=== PATIENT | female | born 1990 ===

== ENCOUNTER 2017-03-09 14:59 | Emergency (ER) | payer BC ==
[2017-03-09 14:59] VITALS: BMI 23.8
[2017-03-09 15:10] VITALS: BP 140/73; PULSE 112; RESP 20; TEMP 97.8; O2SAT 100
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
== END 2017-03-09 18:09 | disposition home or self-care (01) ==
LOC: H.ER 14:59
DX: S09.90XA Unspecified injury of head, initial encounter (principal); H53.8 Other visual disturbances; Y04.0XXA Assault by unarmed brawl or fight, initial encounter; Y92.89 Other specified places as the place of occurrence of the external cause; F17.210 Nicotine dependence, cigarettes, uncomplicated

== ENCOUNTER 2017-03-14 10:09 | Emergency (ER) | payer BC ==
[2017-03-14 10:09] VITALS: BMI 23.8
[2017-03-14 10:18] VITALS: BP 106/57; PULSE 94; RESP 18; TEMP 97.7; O2SAT 99
--- NOTE | 2017-03-14 12:25 | ED PDOC ---
Lower Extremity Pain/Injury Time Seen by Provider: 03/14/17 12:23 Chief Complaint (Nursing): Lower Extremity Problem/Injury Chief Complaint (Provider): leg pain History Per: Patient History/Exam Limitations: no limitations Additional Complaint(s): 26yo F with no medical hx in ED c/o left lateral leg pain -doesn't remember strenuous activity, running or overstretching. states she works in [employer] does lifting. no groin pain no back pain no bruising no lesions. Past Medical History Reviewed: Historical Data, Nursing Documentation, Vital Signs Vital Signs: Last Vital Signs Temp 97.7 F 03/14/17 10:16 Pulse 94 H 03/14/17 10:16 Resp 18 03/14/17 10:16 BP 106/57 L 03/14/17 10:16 Pulse Ox 99 03/14/17 10:16 - Medical History PMH: Migraine - Surgical History Surgical History: (x2) - Family History Family History: States: Unknown Family Hx - Home Medications Home Medications: Ambulatory Orders Medication Instructions Recorded Ibuprofen [Motrin] 600 mg PO TID PRN #30 tab 07/08/16 Naproxen [Naprosyn] 1 tab PO BID PRN #60 tab 08/05/16 Albuterol HFA [Ventolin HFA 90 2 puff IH [id number] PRN #0 puff 09/04/16 mcg/actuation (8 g)] Promethazine DM [Phenergan DM 5 ml PO Q6 PRN #120 ml 09/04/16 Syrup] Naproxen [Naprosyn] 500 mg PO BID PRN #20 tablet 09/24/16 Albuterol HFA [Ventolin HFA 90 2 puff IH Q6 #200 puff 12/21/16 mcg/actuation (8 g)] Dextromethorphan Polistirex 30 mg PO BID #100 ml 12/21/16 [Delsym] Oseltamivir Phosphate [Tamiflu] 75 mg PO BID #10 capsule 12/21/16 Ondansetron ODT [Zofran ODT] 4 mg PO Q6 PRN #10 odt 03/09/17 Multivit/Folic Acid/I 1 tab PO DAILY #30 tab 03/09/17 [ Plus] - Allergies Allergies/Adverse Reactions: Allergies Allergy/AdvReac Type Severity Reaction Status Date / Time No Known Allergies Allergy Verified 12/21/16 15:11 Review of Systems ROS Statement: Except As Marked, All Systems Reviewed And Found Negative Musculoskeletal: Positive for: Leg Pain Physical Exam - Reviewed Nursing Documentation Reviewed: Yes Vital Signs Reviewed: Yes - Physical Exam Appears: Positive for: Well, Non-toxic, No Acute Distress Head Exam: Positive for: ATRAUMATIC, NORMAL INSPECTION, NORMOCEPHALIC Skin: Positive for: Normal Color, Warm, DRY Cardiovascular/Chest: Positive for: Regular Rate, Rhythm Respiratory: Positive for: CNT, Normal Breath Sounds Extremity: Positive for: Other (left leg: lateral side- IT band tender., FROM of hip no lesions visible ) Neurologic/Psych: Positive for: Alert, Oriented - ECG O2 Sat by Pulse Oximetry: 99 Medical Decision Making Medical Decision Making: dx: IT band syndrome tx in ED: torodol IM plan: rest and f.u with pmd/motrin for pain. Disposition - Clinical Impression Clinical Impression: IT band syndrome - Patient ED Disposition Is Patient to be Admitted: No Counseled Patient/Family Regarding: Diagnosis, Need For Followup - Disposition Referrals: [facility] [Outside] Disposition: Routine/Home Disposition Time: 12:26 Condition: STABLE Instructions: Iliotibial Band Syndrome (ED) Forms: [facility] ED School/Work Excuse
== END 2017-03-14 14:00 | disposition home or self-care (01) ==
LOC: H.ER 10:09
DX: M76.32 Iliotibial band syndrome, left leg (principal)
CPT/HCPCS: 81025; 96372; 99283; J1885

== ENCOUNTER 2017-03-24 13:56 | Emergency (ER) | payer BC ==
[2017-03-24 13:56] VITALS: BMI 23.8
[2017-03-24 14:06] VITALS: BP 110/66; PULSE 109; RESP 19; TEMP 98.4; O2SAT 99
[2017-03-24] MEDS ORDERED: Naproxen 500 MG TAB PO ONE ×2 (14:18→14:26)
--- NOTE | 2017-03-24 14:25 | ED PDOC ---
HPI: CCC, URI, Sore Throat Time Seen by Provider: 03/24/17 14:00 Chief Complaint (Provider): cold, congestion History Per: Patient History/Exam Limitations: no limitations Have you had recent travel within the past 21 days to any of the following countries: [place], [place], [place] or [place]?: No Onset/Duration Of Symptoms: Days Current Symptoms Are (Timing): Still Present Location Of Pain: Throat, Sinus/es Sick Contacts (Context): None Associated Symptoms: Fever (feels febrile), Sore Throat, Nasal Congestion. denies: Cough Additional History Per: Patient Additional Complaint(s): The pt is a 26yo female, presents to the ED for evaluation of sore throat for the past two days. Pt reports congestion, feeling febrile and states she has not taken medication to relieve her pain. Pt denies any recent travels, sick contacts and abdominal pain. At present, she offers no additional medical complaints. Past Medical History Reviewed: Historical Data, Nursing Documentation, Vital Signs Vital Signs: Last Vital Signs Temp 98.4 F 03/24/17 14:05 Pulse 109 H 03/24/17 14:05 Resp 19 03/24/17 14:05 BP 110/66 03/24/17 14:05 Pulse Ox 99 03/24/17 14:32 - Medical History PMH: Migraine - Surgical History Surgical History: (x2) - Family History Family History: States: Unknown Family Hx - Home Medications Home Medications: Ambulatory Orders Medication Instructions Recorded Ibuprofen [Motrin] 600 mg PO TID PRN #30 tab 07/08/16 Naproxen [Naprosyn] 1 tab PO BID PRN #60 tab 08/05/16 Albuterol HFA [Ventolin HFA 90 2 puff IH [id number] PRN #0 puff 09/04/16 mcg/actuation (8 g)] Promethazine DM [Phenergan DM 5 ml PO Q6 PRN #120 ml 09/04/16 Syrup] Naproxen [Naprosyn] 500 mg PO BID PRN #20 tablet 09/24/16 Albuterol HFA [Ventolin HFA 90 2 puff IH Q6 #200 puff 12/21/16 mcg/actuation (8 g)] Dextromethorphan Polistirex 30 mg PO BID #100 ml 12/21/16 [Delsym] Oseltamivir Phosphate [Tamiflu] 75 mg PO BID #10 capsule 12/21/16 Ondansetron ODT [Zofran ODT] 4 mg PO Q6 PRN #10 odt 03/09/17 Multivit/Folic Acid/I 1 tab PO DAILY #30 tab 03/09/17 [ Plus] Ibuprofen [Motrin Tab] 600 mg PO Q8 PRN #30 tab 03/24/17 Penicillin VK [Pen-Vee K] 500 mg PO Q6 #40 tab 03/24/17 - Allergies Allergies/Adverse Reactions: Allergies Allergy/AdvReac Type Severity Reaction Status Date / Time No Known Allergies Allergy Verified 12/21/16 15:11 Review of Systems ROS Statement: Except As Marked, All Systems Reviewed And Found Negative Constitutional: Positive for: Fever (feels febrile) ENT: Positive for: Nose Congestion, Throat Pain, Throat Swelling Gastrointestinal: Negative for: Abdominal Pain Physical Exam - Reviewed Nursing Documentation Reviewed: Yes Vital Signs Reviewed: Yes - Physical Exam Appears: Positive for: Well, Non-toxic, No Acute Distress Head Exam: Positive for: ATRAUMATIC, NORMAL INSPECTION, NORMOCEPHALIC Skin: Positive for: Normal Color, Warm, Dry. Negative for: Rash Eye Exam: Positive for: Normal appearance ENT: Positive for: TM Is/Are (normal), Pharyngeal Erythema, Tonsillar Exudate, Tonsillar Swelling, Other (no trismus) Respiratory: Negative for: Respiratory Distress Gastrointestinal/Abdominal: Positive for: Soft. Negative for: Tenderness Neurologic/Psych: Positive for: Alert, Oriented - ECG O2 Sat by Pulse Oximetry: 99 (RA) Pulse Ox Interpretation: Normal Medical Decision Making Medical Decision Making: Time: 1420 Impression: URI Plan: -- Naproxen 500 mg -- Throat culture --Reassess Scribe Attestation: All records were documented by Valerie Slater, acting as a Scribe for PARIS Honeycutt. Provider Scribe Attestation: All medical record entries made by the Scribe were at my direction and personally dictated by me. I have reviewed the chart and agree that the record accurately reflects my personal performance of the history, physical exam, medical decision making, and the department course for this patient. I have also personally directed, reviewed, and agree with the discharge instructions and disposition. Disposition - Clinical Impression Clinical Impression: Pharyngitis - Patient ED Disposition Is Patient to be Admitted: No - Disposition Disposition: Routine/Home Disposition Time: 14:53 Condition: STABLE Prescriptions: Ibuprofen [Motrin Tab] 600 mg PO Q8 PRN #30 tab PRN Reason: pain or fever Penicillin VK [Pen-Vee K] 500 mg PO Q6 #40 tab Instructions: Pharyngitis (ED) Print Language: SLOVAK
== END 2017-03-24 14:56 | disposition home or self-care (01) ==
LOC: H.ER 13:56
DX: J02.9 Acute pharyngitis, unspecified (principal); Z72.0 Tobacco use

== ENCOUNTER 2017-05-05 15:07 | Emergency (ER) | payer BC ==
[2017-05-05 15:15] VITALS: BP 106/83; PULSE 81; RESP 16; TEMP 98.3; O2SAT 97
[2017-05-05 15:16] VITALS: BMI 23.2
[2017-05-05] MEDS ORDERED: TDAP Vaccine 0.5 mL Syr IM ONE (15:19)
--- NOTE | 2017-05-05 15:43 | ED PDOC ---
Upper Extremity Pain/Injury Time Seen by Provider: 05/05/17 15:17 Chief Complaint (Nursing): Finger,Hand,&Wrist Chief Complaint (Provider): Left hand injur History Per: Patient History/Exam Limitations: no limitations Onset/Duration Of Symptoms: Days (3) Current Symptoms Are (Timing): Still Present Quality: "Pain" Additional Complaint(s): The pt is a 26yo female, presents to the ED for evaluation of left 5th digit injury 3 days ago. Pt reports she hit her hand against a door and the pain has not subsided. Pt denies any numbness or tingling and offers no additional medical complaints. Tetanus not up to date. Past Medical History Reviewed: Historical Data, Nursing Documentation, Vital Signs Vital Signs: Last Vital Signs Temp 98.3 F 05/05/17 15:14 Pulse 81 05/05/17 15:14 Resp 16 05/05/17 15:14 BP 106/83 05/05/17 15:14 Pulse Ox 97 05/05/17 15:14 - Medical History PMH: Migraine - Surgical History Surgical History: (x2) - Family History Family History: States: Unknown Family Hx - Home Medications Home Medications: Ambulatory Orders Medication Instructions Recorded Ibuprofen [Motrin] 600 mg PO TID PRN #30 tab 07/08/16 Naproxen [Naprosyn] 1 tab PO BID PRN #60 tab 08/05/16 Albuterol HFA [Ventolin HFA 90 2 puff IH [id number] PRN #0 puff 09/04/16 mcg/actuation (8 g)] Promethazine DM [Phenergan DM 5 ml PO Q6 PRN #120 ml 09/04/16 Syrup] Naproxen [Naprosyn] 500 mg PO BID PRN #20 tablet 09/24/16 Albuterol HFA [Ventolin HFA 90 2 puff IH Q6 #200 puff 12/21/16 mcg/actuation (8 g)] Dextromethorphan Polistirex 30 mg PO BID #100 ml 12/21/16 [Delsym] Oseltamivir Phosphate [Tamiflu] 75 mg PO BID #10 capsule 12/21/16 Ondansetron ODT [Zofran ODT] 4 mg PO Q6 PRN #10 odt 03/09/17 Multivit/Folic Acid/I 1 tab PO DAILY #30 tab 03/09/17 [ Plus] Ibuprofen [Motrin Tab] 600 mg PO Q8 PRN #30 tab 03/24/17 Penicillin VK [Pen-Vee K] 500 mg PO Q6 #40 tab 03/24/17 - Allergies Allergies/Adverse Reactions: Allergies Allergy/AdvReac Type Severity Reaction Status Date / Time No Known Allergies Allergy Verified 05/05/17 16:06 Review of Systems ROS Statement: Except As Marked, All Systems Reviewed And Found Negative Musculoskeletal: Positive for: Hand Pain (left) Physical Exam - Reviewed Nursing Documentation Reviewed: Yes Vital Signs Reviewed: Yes - Physical Exam Appears: Positive for: Well, Non-toxic, No Acute Distress Head Exam: Positive for: ATRAUMATIC, NORMAL INSPECTION, NORMOCEPHALIC Skin: Positive for: Normal Color, Warm. Negative for: Rash Extremity: Positive for: Normal ROM, Other (Superficial abrasion on lateral side of distal phalanx. nail still intact.). Negative for: Deformity, Swelling Neurologic/Psych: Positive for: Alert, Oriented. Negative for: Aphasia, Facial Droop - ECG O2 Sat by Pulse Oximetry: 97 (RA) Pulse Ox Interpretation: Normal Medical Decision Making Medical Decision Making: Time: 1522 Impression: Left hand injury Plan: -- TDAP Booster -- XR Left Hand -- Reassess Scribe Attestation: Documented by Valerie Slater acting as a scribe for PARIS Honeycutt Provider Attestation: All medical record entries made by the Scribe were at my direction and personally dictated by me. I have reviewed the chart and agree that the record accurately reflects my personal performance of the history, physical exam, medical decision making, and the department course for this patient. I have also personally directed, reviewed, and agree with the discharge instructions and disposition. Disposition - Clinical Impression Clinical Impression: Finger sprain - Patient ED Disposition Is Patient to be Admitted: No - Disposition Referrals: [facility] [Outside] Disposition: Routine/Home Disposition Time: 15:45 Condition: STABLE Additional Instructions: Take Tylenol or Motrin at home for pain. Instructions: Finger Sprain (ED) Print Language: SLOVAK
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
== END 2017-05-05 16:10 | disposition home or self-care (01) ==
LOC: H.ER 15:07
DX: S63.615A Unspecified sprain of left ring finger, initial encounter (principal); W22.8XXA Striking against or struck by other objects, initial encounter; Y92.89 Other specified places as the place of occurrence of the external cause

== ENCOUNTER 2017-05-24 13:06 | Emergency (ER) | payer BC ==
[2017-05-24 13:07] VITALS: BMI 23.2
[2017-05-24 13:16] VITALS: BP 107/60; PULSE 90; RESP 16; TEMP 98.6; O2SAT 100
--- NOTE | 2017-05-24 13:47 | ED PDOC ---
HPI: Female Pain Time Seen by Provider: 05/24/17 13:25 Chief Complaint (Nursing): Female Genitourinary Chief Complaint (Provider): Female Genitourinary History Per: Patient History/Exam Limitations: no limitations Onset/Duration Of Symptoms: Days (2x) Current Symptoms Are (Timing): Still Present Severity: Moderate Quality Of Discomfort: Burning (dysuria) Associated Symptoms: Urinary Symptoms (dysuria, hematuria). denies: Fever, Chills, Nausea, Vomiting, Back Pain Additional Complaint(s): 26 year old female with no pertinent medical history presents to the ED with complaints of a female genitourinary problem. She reports that for the past 2x days she has been experiencing dysuria and hematuria. She also reports having intermittent abdominal pain and abnormal vaginal bleeding. She took ibuprofen this morning which gave her mild relief from the pain. She denies having fevers , chills, nausea, and vomiting. PMD: Not provided Abnormal Vaginal Bleeding: Yes Past Medical History Reviewed: Historical Data, Nursing Documentation, Vital Signs Vital Signs: Last Vital Signs Temp 98.6 F 05/24/17 13:13 Pulse 90 05/24/17 13:13 Resp 16 05/24/17 13:13 BP 107/60 05/24/17 13:13 Pulse Ox 100 05/24/17 13:13 - Medical History PMH: Migraine - Surgical History Surgical History: (x2) - Family History Family History: States: Unknown Family Hx - Social History Current smoker - smoking cessation education provided: Yes Alcohol: None Drugs: Denies - Home Medications Home Medications: Ambulatory Orders Medication Instructions Recorded Ibuprofen [Motrin] 600 mg PO TID PRN #30 tab 07/08/16 Naproxen [Naprosyn] 1 tab PO BID PRN #60 tab 08/05/16 Albuterol HFA [Ventolin HFA 90 2 puff IH [id number] PRN #0 puff 09/04/16 mcg/actuation (8 g)] Promethazine DM [Phenergan DM 5 ml PO Q6 PRN #120 ml 09/04/16 Syrup] Naproxen [Naprosyn] 500 mg PO BID PRN #20 tablet 09/24/16 Albuterol HFA [Ventolin HFA 90 2 puff IH Q6 #200 puff 12/21/16 mcg/actuation (8 g)] Dextromethorphan Polistirex 30 mg PO BID #100 ml 12/21/16 [Delsym] Oseltamivir Phosphate [Tamiflu] 75 mg PO BID #10 capsule 12/21/16 Ondansetron ODT [Zofran ODT] 4 mg PO Q6 PRN #10 odt 03/09/17 Multivit/Folic Acid/I 1 tab PO DAILY #30 tab 03/09/17 [ Plus] Ibuprofen [Motrin Tab] 600 mg PO Q8 PRN #30 tab 03/24/17 Penicillin VK [Pen-Vee K] 500 mg PO Q6 #40 tab 03/24/17 Nitrofurantoin Macrocrystals 100 mg PO BID #14 cap 05/24/17 [Macrobid] Phenazopyridine HCl [Pyridium] 200 mg PO TID PRN #10 tablet 05/24/17 - Allergies Allergies/Adverse Reactions: Allergies Allergy/AdvReac Type Severity Reaction Status Date / Time No Known Allergies Allergy Verified 05/05/17 16:06 Review of Systems ROS Statement: Except As Marked, All Systems Reviewed And Found Negative Constitutional: Negative for: Fever, Chills Gastrointestinal: Positive for: Abdominal Pain (intermittent). Negative for: Nausea, Vomiting Genitourinary Female: Positive for: Dysuria, Hematuria, Vaginal Bleeding ( abnormal vaginal bleeding) Physical Exam - Reviewed Nursing Documentation Reviewed: Yes Vital Signs Reviewed: Yes - Physical Exam Appears: Positive for: Well, Non-toxic, No Acute Distress Head Exam: Positive for: ATRAUMATIC, NORMOCEPHALIC Skin: Positive for: Normal Color, Warm, Dry Cardiovascular/Chest: Positive for: Regular Rate, Rhythm Respiratory: Positive for: Normal Breath Sounds. Negative for: Respiratory Distress Gastrointestinal/Abdominal: Positive for: Normal Exam, Soft. Negative for: Tenderness Back: Positive for: Normal Inspection. Negative for: L CVA Tenderness, R CVA Tenderness Neurologic/Psych: Positive for: Alert, Oriented (3x) - Laboratory Results Urine POC: Negative Urine dip results: Positive for: Leukocyte Esterase (large), Blood (large) - ECG O2 Sat by Pulse Oximetry: 100 (RA) Pulse Ox Interpretation: Normal Medical Decision Making Medical Decision Makin:25 Initial impression: 26 year old female with dysuria and hematuria. Initial plan: * urine * udip * urine culture * chlamydia/GC RNA, TMA * reevaluation Patient given initial doses of Pyridium and Macrobid along with prescriptions for same medications. She was advised to drink plenty of fluids and to follow- up with clinic in 2-3 days. Scribe Attestation: Documented by Marta Elias, acting as a scribe for Rachel Alejandro PA-C. Provider Scribe Attestation: All medical record entries made by the Scribe were at my direction and personally dictated by me. I have reviewed the chart and agree that the record accurately reflects my personal performance of the history, physical exam, medical decision making, and the department course for this patient. I have also personally directed, reviewed, and agree with the discharge instructions and disposition. Disposition - Clinical Impression Clinical Impression: Urinary tract infection - Patient ED Disposition Is Patient to be Admitted: No Counseled Patient/Family Regarding: Studies Performed, Diagnosis, Need For Followup, Rx Given - Disposition Referrals: [facility] [Outside] Disposition: Routine/Home Disposition Time: 14:05 Condition: STABLE Additional Instructions: Take rx meds as directed. Drink plenty of fluids. Follow up with clinic in 2- 3 days. Prescriptions: Nitrofurantoin Macrocrystals [Macrobid] 100 mg PO BID #14 cap Phenazopyridine HCl [Pyridium] 200 mg PO TID PRN #10 tablet PRN Reason: Bladder Spasm Instructions: Urinary Tract Infection in Women (ED)
== END 2017-05-24 14:30 | disposition home or self-care (01) ==
LOC: H.ER 13:06
DX: N39.0 Urinary tract infection, site not specified (principal)

== ENCOUNTER 2017-06-04 22:34 | Emergency (ER) | payer SELFPAY ==
[2017-06-04 22:34] VITALS: BMI 23.2
[2017-06-04 23:24] VITALS: BP 118/66; PULSE 91; RESP 16; TEMP 99.6; O2SAT 98
--- NOTE | 2017-06-04 23:43 | ED PDOC ---
HPI: General Adult Time Seen by Provider: 06/04/17 23:35 Chief Complaint (Nursing): Cough, Cold, Congestion History Per: Patient Additional Complaint(s): Pt. states for the past 3 days she's had a dry cough and nasal congestion without fever. Denies chest pain, SOB, hemoptysis, palpitations, sick contacts, recent travel. Past Medical History Reviewed: Historical Data, Nursing Documentation, Vital Signs Vital Signs: Last Vital Signs Temp 99.6 F 06/04/17 23:22 Pulse 91 H 06/04/17 23:22 Resp 16 06/04/17 23:22 BP 118/66 06/04/17 23:22 Pulse Ox 98 06/04/17 23:22 - Medical History PMH: Migraine - Surgical History Surgical History: (x2) - Family History Family History: States: No Known Family Hx - Home Medications Home Medications: Ambulatory Orders Medication Instructions Recorded Ibuprofen [Motrin] 600 mg PO TID PRN #30 tab 07/08/16 Naproxen [Naprosyn] 1 tab PO BID PRN #60 tab 08/05/16 Albuterol HFA [Ventolin HFA 90 2 puff IH [id number] PRN #0 puff 09/04/16 mcg/actuation (8 g)] Promethazine DM [Phenergan DM 5 ml PO Q6 PRN #120 ml 09/04/16 Syrup] Naproxen [Naprosyn] 500 mg PO BID PRN #20 tablet 09/24/16 Albuterol HFA [Ventolin HFA 90 2 puff IH Q6 #200 puff 12/21/16 mcg/actuation (8 g)] Dextromethorphan Polistirex 30 mg PO BID #100 ml 12/21/16 [Delsym] Oseltamivir Phosphate [Tamiflu] 75 mg PO BID #10 capsule 12/21/16 Ondansetron ODT [Zofran ODT] 4 mg PO Q6 PRN #10 odt 03/09/17 Multivit/Folic Acid/I 1 tab PO DAILY #30 tab 03/09/17 [ Plus] Ibuprofen [Motrin Tab] 600 mg PO Q8 PRN #30 tab 03/24/17 Penicillin VK [Pen-Vee K] 500 mg PO Q6 #40 tab 03/24/17 Nitrofurantoin Macrocrystals 100 mg PO BID #14 cap 05/24/17 [Macrobid] Phenazopyridine HCl [Pyridium] 200 mg PO TID PRN #10 tablet 05/24/17 Benzonatate [Tessalon Perle] 100 mg PO Q8 PRN #30 capsule 06/04/17 Fluticasone Propionate [Flonase] 2 spr NS DAILY PRN #1 bottle 06/04/17 - Allergies Allergies/Adverse Reactions: Allergies Allergy/AdvReac Type Severity Reaction Status Date / Time No Known Allergies Allergy Verified 05/05/17 16:06 Review of Systems ROS Statement: Except As Marked, All Systems Reviewed And Found Negative ENT: Positive for: Nose Congestion Respiratory: Positive for: Cough Physical Exam - Physical Exam Appears: Positive for: Well, Non-toxic, No Acute Distress Skin: Positive for: Normal Color, Warm. Negative for: Rash Eye Exam: Positive for: EOMI, Normal appearance, PERRL ENT: Positive for: Normal ENT Inspection, TM Is/Are (non-erythematous, non- bulging b/l). Negative for: Pharyngeal Erythema, Tonsillar Exudate, Tonsillar Swelling Neck: Positive for: Normal, Painless ROM Cardiovascular/Chest: Positive for: Regular Rate, Rhythm Respiratory: Positive for: Normal Breath Sounds. Negative for: Decreased Breath Sounds, Accessory Muscle Use, Crackles, Rales, Rhonchi, Wheezing, Respiratory Distress Neurologic/Psych: Positive for: Alert, Oriented - ECG O2 Sat by Pulse Oximetry: 98 Disposition - Clinical Impression Clinical Impression: URI (upper respiratory infection) - Patient ED Disposition Is Patient to be Admitted: No - Disposition Referrals: [facility] [Outside] Disposition: Routine/Home Disposition Time: 23:44 Condition: STABLE Prescriptions: Benzonatate [Tessalon Perle] 100 mg PO Q8 PRN #30 capsule PRN Reason: Cough Fluticasone Propionate [Flonase] 2 spr NS DAILY PRN #1 bottle PRN Reason: Allergy Symptoms Instructions: Upper Respiratory Infection (ED) Print Language: [place] ISLAND[place]
== END 2017-06-04 23:59 | disposition home or self-care (01) ==
LOC: H.ER 22:34
DX: J06.9 Acute upper respiratory infection, unspecified (principal)

== ENCOUNTER 2017-10-06 13:39 | Emergency (ER) | payer SELFPAY ==
[2017-10-06 13:40] VITALS: BMI 23.2
[2017-10-06 13:51] VITALS: BP 113/73; PULSE 94; RESP 20; TEMP 97.9; O2SAT 98
--- NOTE | 2017-10-06 14:52 | ED PDOC ---
HPI: Skin/Bite Injury Time Seen by Provider: 10/06/17 13:58 Chief Complaint (Nursing): Abnormal Skin Integrity Chief Complaint (Provider): Left Buttock Lesion History Per: Patient History/Exam Limitations: no limitations Onset/Duration Of Symptoms: Days (x14) Current Symptoms Are (Timing): Still Present Additional Complaint(s): Isa Harris is a 27 year old female presenting to the ED for an evaluation of a lesion to her left buttock region occurring 2 weeks prior to arrival. The patient noticed this lesion was small at first and then increased in size. She reports a painful sensation to the area when walking. She also attempted to drain the lesion herself. PMD: None Provided Past Medical History Reviewed: Historical Data, Nursing Documentation, Vital Signs Vital Signs: Last Vital Signs Temp 97.9 F 10/06/17 13:49 Pulse 94 H 10/06/17 13:49 Resp 20 10/06/17 13:49 BP 113/73 10/06/17 13:49 Pulse Ox 98 10/06/17 14:56 - Medical History PMH: Migraine - Surgical History Surgical History: (x2) - Family History Family History: States: No Known Family Hx - Social History Current smoker - smoking cessation education provided: Yes Alcohol: None Drugs: Denies - Home Medications Home Medications: Ambulatory Orders Medication Instructions Recorded Ibuprofen [Motrin] 600 mg PO TID PRN #30 tab 07/08/16 Naproxen [Naprosyn] 1 tab PO BID PRN #60 tab 08/05/16 Albuterol HFA [Ventolin HFA 90 2 puff IH [id number] PRN #0 puff 09/04/16 mcg/actuation (8 g)] Promethazine DM [Phenergan DM 5 ml PO Q6 PRN #120 ml 09/04/16 Syrup] Naproxen [Naprosyn] 500 mg PO BID PRN #20 tablet 09/24/16 Albuterol HFA [Ventolin HFA 90 2 puff IH Q6 #200 puff 12/21/16 mcg/actuation (8 g)] Dextromethorphan Polistirex 30 mg PO BID #100 ml 12/21/16 [Delsym] Oseltamivir Phosphate [Tamiflu] 75 mg PO BID #10 capsule 12/21/16 Ondansetron ODT [Zofran ODT] 4 mg PO Q6 PRN #10 odt 03/09/17 Multivit/Folic Acid/I 1 tab PO DAILY #30 tab 03/09/17 [ Plus] Ibuprofen [Motrin Tab] 600 mg PO Q8 PRN #30 tab 03/24/17 Penicillin VK [Pen-Vee K] 500 mg PO Q6 #40 tab 03/24/17 Nitrofurantoin Macrocrystals 100 mg PO BID #14 cap 05/24/17 [Macrobid] Phenazopyridine HCl [Pyridium] 200 mg PO TID PRN #10 tablet 05/24/17 Benzonatate [Tessalon Perle] 100 mg PO Q8 PRN #30 capsule 06/04/17 Fluticasone Propionate [Flonase] 2 spr NS DAILY PRN #1 bottle 06/04/17 Cephalexin [cephalexin] 500 mg PO BID #20 cap 10/06/17 - Allergies Allergies/Adverse Reactions: Allergies Allergy/AdvReac Type Severity Reaction Status Date / Time No Known Allergies Allergy Verified 10/06/17 13:48 Review of Systems ROS Statement: Except As Marked, All Systems Reviewed And Found Negative Skin: Positive for: Lesions (to left buttock associated with pain) Physical Exam - Reviewed Nursing Documentation Reviewed: Yes Vital Signs Reviewed: Yes - Physical Exam Appears: Positive for: Non-toxic, No Acute Distress Head Exam: Positive for: ATRAUMATIC, NORMOCEPHALIC Cardiovascular/Chest: Positive for: Regular Rate, Rhythm, Chest Non Tender Respiratory: Positive for: Normal Breath Sounds. Negative for: Respiratory Distress Extremity: Positive for: Normal ROM, Other (small, round 5 cm lesion with surrounding erythema, no streaking and minor warmth noted ). Negative for: Deformity Neurologic/Psych: Positive for: Alert, Oriented (x3). Negative for: Motor/ Sensory Deficits - ECG O2 Sat by Pulse Oximetry: 98 (RA) Pulse Ox Interpretation: Normal Medical Decision Making Medical Decision Making: Time: 13:58 Impression: Most likely cellulitis/ abscess formation Plan: * Will rx antibiotics. Discuss with patient to take antibiotics and apply a warm compress to area. Also discussed to follow up with PMD. Will refer patient to clinic. Scribe Attestation: Documented by Mariza Berumen, acting as a scribe for Brenda Evans PA-C. Provider Scribe Attestation: All medical record entries made by the Scribe were at my direction and personally dictated by me. I have reviewed the chart and agree that the record accurately reflects my personal performance of the history, physical exam, medical decision making, and the department course for this patient. I have also personally directed, reviewed, and agree with the discharge instructions and disposition. Disposition - Clinical Impression Clinical Impression: Folliculitis - Patient ED Disposition Is Patient to be Admitted: No - Disposition Referrals: [facility] [Outside] Disposition: Routine/Home Disposition Time: 10:16 Condition: STABLE Prescriptions: Cephalexin [cephalexin] 500 mg PO BID #20 cap Instructions: Folliculitis (ED) Forms: [employer] (Brazilian)
== END 2017-10-06 14:30 | disposition home or self-care (01) ==
LOC: H.ER 13:39
DX: L02.32 Furuncle of buttock (principal); L73.9 Follicular disorder, unspecified

== ENCOUNTER 2018-04-14 20:11 | Emergency (ER) | payer SELFPAY ==
[2018-04-14 20:11] VITALS: BMI 23.2
[2018-04-14 20:17] VITALS: O2SAT 97
--- NOTE | 2018-04-14 20:52 | ED PDOC ---
HPI:Nausea, Vomiting, Diarrhea Chief Complaint (Provider): nausea, vomiting, diarrhea History Per: Patient History/Exam Limitations: no limitations Onset/Duration Of Symptoms: Days (1) Current Symptoms Are (Timing): Still Present Have you had recent travel within the past 21 days to any of the following countries: [place], [place], [place] or [place]?: No Associated Symptoms: Fever (Tmax 100.4 F), Chills, Nausea, Vomiting, Diarrhea. denies: Loss Of Appetite, Constipation, Urinary Symptoms Exacerbating Factors: Food Alleviating Factors: None Last Bowel Movement: Today (watery) Additional Complaint(s): 27 yr old F presents to ED with complaint of nausea, vomiting, diarrhea and fever Tmax 100.4 F x 1 day. Denies PMHx. Daughter had fever yesterday as well. Fever resolved with 1 dose of tylenol at 1pm today. Associated symptoms are headache, sore throat and body aches. Denies dysuria, hematuria, vaginal discharge, cough or ear pain. Vomiting is exacerbated by food intake, reports normal urine output. LMP: 03/22/18-irregular -sexually active, not on contraceptives PMD: none PMHx: none SurgHx: 2 c-sections SocHx: 9 cig daily x 1 yr, Medications: none Allergies: NKDA <Mechelle Stewart - Last Filed: 04/14/18 23:05> <Jakub Tapia - Last Filed: 04/14/18 23:34> Time Seen by Provider: 04/14/18 20:20 Chief Complaint (Nursing): GI Problem Supervising Attending Note - Supervising Attending Note The Documented history was done by the: Physician Postal Service Clerk The documented physical exam was done by the: Physician Postal Service Clerk - Attestation: I have personally seen and examined this patient.: Yes I have fully participated in the care of the patient.: Yes I have reviewed all pertinent clinical information, including history, physical exam and plan: Yes <Jakub Tapia - Last Filed: 04/14/18 23:34> Past Medical History Vital Signs: Last Vital Signs Temp 99.3 F 04/14/18 20:14 Pulse 117 H 04/14/18 20:14 Resp 16 04/14/18 20:14 BP 109/75 04/14/18 20:14 Pulse Ox 97 04/14/18 20:14 - Medical History PMH: Migraine - Surgical History Surgical History: (x2) - Family History Family History: States: No Known Family Hx - Living Arrangements Living Arrangements: With Family - Social History Current smoker - smoking cessation education provided: Yes (9 cig daily x 1 yr) Alcohol: None Drugs: Denies <Mechelle Stewart - Last Filed: 04/14/18 23:05> Vital Signs: Last Vital Signs Temp 98.4 F 04/14/18 23:09 Pulse 95 H 04/14/18 23:09 Resp 18 04/14/18 23:09 BP 113/73 04/14/18 23:09 Pulse Ox 97 04/14/18 23:09 <Jakub Tapia - Last Filed: 04/14/18 23:34> - Home Medications Home Medications: Ambulatory Orders Medication Instructions Recorded Ibuprofen [Motrin] 600 mg PO TID PRN #30 tab 07/08/16 Naproxen [Naprosyn] 1 tab PO BID PRN #60 tab 08/05/16 Albuterol HFA [Ventolin HFA 90 2 puff IH [id number] PRN #0 puff 09/04/16 mcg/actuation (8 g)] Promethazine DM [Phenergan DM 5 ml PO Q6 PRN #120 ml 09/04/16 Syrup] Naproxen [Naprosyn] 500 mg PO BID PRN #20 tablet 09/24/16 Albuterol HFA [Ventolin HFA 90 2 puff IH Q6 #200 puff 12/21/16 mcg/actuation (8 g)] Dextromethorphan Polistirex 30 mg PO BID #100 ml 12/21/16 [Delsym] Oseltamivir Phosphate [Tamiflu] 75 mg PO BID #10 capsule 12/21/16 Ondansetron ODT [Zofran ODT] 4 mg PO Q6 PRN #10 odt 03/09/17 Multivit/Folic Acid/I 1 tab PO DAILY #30 tab 03/09/17 [ Plus] Ibuprofen [Motrin Tab] 600 mg PO Q8 PRN #30 tab 03/24/17 Penicillin VK [Penicillin VK Tab] 500 mg PO Q6 #40 tab 03/24/17 Nitrofurantoin Macrocrystals 100 mg PO BID #14 cap 05/24/17 [Macrobid] Phenazopyridine HCl [Pyridium] 200 mg PO TID PRN #10 tablet 05/24/17 Benzonatate [Tessalon Perle] 100 mg PO Q8 PRN #30 capsule 06/04/17 Fluticasone Propionate [Flonase] 2 spr NS DAILY PRN #1 bottle 06/04/17 Cephalexin [cephalexin] 500 mg PO BID #20 cap 10/06/17 Dicyclomine [Bentyl] 20 mg PO Q12 PRN #20 tab 04/14/18 Ondansetron ODT [Zofran ODT] 4 mg PO Q6 PRN #8 odt 04/14/18 - Allergies Allergies/Adverse Reactions: Allergies Allergy/AdvReac Type Severity Reaction Status Date / Time No Known Allergies Allergy Verified 10/06/17 13:48 Review of Systems Constitutional: Positive for: Fever, Malaise Eyes: Negative for: Vision Change, Eyelid Inflammation ENT: Positive for: Throat Pain. Negative for: Ear Pain, Nose Discharge, Nose Congestion Cardiovascular: Negative for: Chest Pain, Palpitations, Light Headedness Respiratory: Negative for: Cough, Shortness of Breath, Wheezing Gastrointestinal: Positive for: Nausea, Vomiting, Diarrhea. Negative for: Abdominal Pain Genitourinary Female: Negative for: Dysuria, Frequency, Vaginal Discharge, Vaginal Bleeding, Pelvic Pain Musculoskeletal: Negative for: Neck Pain, Shoulder Pain, Arm Pain Skin: Negative for: Rash, Lesions Neurological: Negative for: Weakness, Confusion, Dizziness <Mechelle Stewart - Last Filed: 04/14/18 23:05> Physical Exam - Physical Exam Appears: Positive for: No Acute Distress Head Exam: Positive for: ATRAUMATIC, NORMOCEPHALIC Skin: Positive for: Normal Color, Warm, Dry Eye Exam: Positive for: EOMI, PERRL ENT: Positive for: TM Is/Are (normal bilaterally), Pharyngeal Erythema. Negative for: Nasal Congestion, Tonsillar Exudate Neck: Positive for: Painless ROM, Supple Cardiovascular/Chest: Negative for: Gallop, Murmur Respiratory: Positive for: Normal Breath Sounds. Negative for: Accessory Muscle Use, Crackles, Rhonchi Pulses-Carotid (L): 2+ Pulses-Carotid (R): 2+ Pulses-Radial (L): 2+ Pulses-Radial (R): 2+ Gastrointestinal/Abdominal: Positive for: Bowel Sounds (present), Soft. Negative for: Tenderness, Guarding, Rebound Back: Negative for: L CVA Tenderness, R CVA Tenderness Extremity: Positive for: Normal ROM. Negative for: Pedal Edema, Calf Tenderness Lymphatic: Positive for: Adenopathy (mild submandibular) Neurologic/Psych: Positive for: Alert, cigar tobacco rehandler II-XII (grossly intact), Mood/Affect (normal/full range). Negative for: Motor/Sensory Deficits <Mechelle Stewart - Last Filed: 04/14/18 23:05> - Laboratory Results Result Diagrams: 04/14/18 21:07 04/14/18 21:07 - ECG O2 Sat by Pulse Oximetry: 97 - Progress ED Course And Treament: -CBC w/diff: wnl -CMP: wnl -Upreg: negative -Udip: trace leukocytes -Utox: negative -Rapid influenza A/B: negative -1L NS IV bolus, tylenol 650 mg PO once, Zofran 8mg ODT once -23:04 Patient tolerated PO fluids and solids <Mechelle Stewart - Last Filed: 04/14/18 23:05> - Laboratory Results Result Diagrams: 04/14/18 21:07 04/14/18 21:07 <Jakub Tapia - Last Filed: 04/14/18 23:34> Disposition - Patient ED Disposition Is Patient to be Admitted: No Counseled Patient/Family Regarding: Diagnosis, Need For Followup, Rx Given - Disposition Disposition: Routine/Home Disposition Time: 23:03 <Mechelle Stewart - Last Filed: 04/14/18 23:05> <Jakub Tapia - Last Filed: 04/14/18 23:34> - Clinical Impression Clinical Impression: Gastroenteritis - Disposition Condition: STABLE Prescriptions: Dicyclomine [Bentyl] 20 mg PO Q12 PRN #20 tab PRN Reason: diarrhea/abdominal pain Ondansetron ODT [Zofran ODT] 4 mg PO Q6 PRN #8 odt PRN Reason: Nausea/Vomiting Instructions: Diarrhea in Adolescents and Adults Forms: [employer] (Nam[place]ian)
[2018-04-14] MEDS: Sodium Chloride 0.9% 1,000 ML IV SCH ×2 (20:59→21:59)
[2018-04-14 21:28] LABS: BARBITURATES, UR NEGATIVE (NEGATIVE); BENZODIAZEPINES, UR NEGATIVE (NEGATIVE); OPIATES, UR NEGATIVE (NEGATIVE); PHENCYCLIDINE, UR NEGATIVE (NEGATIVE)
[2018-04-14 21:35] LABS: ALB/GLOB RATIO 1.1 (1.0-2.1); ALBUMIN 4.2 g/dL (3.5-5.0); ALT/SGPT 45 U/L (9-52); AST/SGOT 28 U/L (14-36); BLOOD UREA NITROGEN 11 mg/dl (7-17); CALCIUM 9.4 mg/dL (8.4-10.2); GFR AFRICAN-AMERICAN > 60; GFR NON-AFRICAN AMERICAN > 60
[2018-04-14 21:39] LABS: BASO % 0.2 % (0.0-2.0); EOS # 0.2 K/uL (0.0-0.7); EOS % 1.6 % (0.0-4.0); HEMOGLOBIN 14.3 g/dL (12.0-16.0); LYMPH # 0.6 K/uL (1.0-4.3); LYMPH % 5.7 % (20.0-40.0); MEAN CELL VOLUME 85.4 fl (81.0-99.0); MEAN CORPUSCULAR HEMOGLOBIN 29.5 pg (27.0-31.0); MEAN CORPUSCULAR HGB CONC 34.6 g/dL (33.0-37.0); MONO # 0.4 K/uL (0.0-0.8); MONO % 3.9 % (0.0-10.0); NEUT # 9.3 K/uL (1.8-7.0); NEUT % 88.6 % (50.0-75.0); NRBC % 0.1 % (0.0-0.0); PLATELET COUNT 303 K/uL (130-400); RBC 4.85 Mil/uL (3.80-5.20); WHITE BLOOD COUNT 10.5 K/uL (4.8-10.8)
[2018-04-14 22:50] LABS: SQUAMOUS EPITHIAL 12 /hpf (0-5); URINE BILIRUBIN NEGATIVE (NEGATIVE); URINE BLOOD MODERATE (NEGATIVE); URINE CLARITY CLOUDY (Clear); URINE COLOR YELLOW (YELLOW); URINE GLUCOSE (UA) NEG (Normal); URINE LEUKOCYTE ESTERASE TRACE Leu/uL (Negative); URINE PROTEIN NEGATIVE (NEGATIVE); URINE UROBILINOGEN 0.2-1.0 mg/dL (0.2-1.0)
[2018-04-14 23:01] LABS: EOSINOPHIL 1 % (0-7); LYMPHOCYTE 4 % (20-50); MONOCYTE 4 % (0-10); NEUTROPHIL 91 % (42-75); TOTAL CELLS COUNTED 100
[2018-04-14 23:02] LABS: PLATELET ESTIMATE NORMAL (NORMAL)
[2018-04-14 23:10] VITALS: BP 113/73; PULSE 95; RESP 18; TEMP 98.4
== END 2018-04-14 23:23 | disposition home or self-care (01) ==
LOC: H.ER 20:11
DX: K52.9 Noninfective gastroenteritis and colitis, unspecified (principal); F17.200 Nicotine dependence, unspecified, uncomplicated
CPT/HCPCS: 80053; 81003; 85025; 87804; 96360; 96361; 99283; G0480; J7040

== ENCOUNTER 2018-04-29 14:13 | Emergency (ER) | payer MEDICAID ==
[2018-04-29 14:55] VITALS: BMI 28.7
[2018-04-29] MEDS ORDERED: Sodium Chloride 0.9% 1,000 ML IV STA (15:17)
--- NOTE | 2018-04-29 16:19 | ED PDOC ---
HPI: General Adult Time Seen by Provider: 04/29/18 15:01 Chief Complaint (Nursing): Fever Chief Complaint (Provider): Fever History Per: Patient History/Exam Limitations: no limitations Onset/Duration Of Symptoms: Days (x 2) Current Symptoms Are (Timing): Still Present Additional Complaint(s): 27 year old female presents to the ED with fever since earlier today associated with headache, sore throat and 1 episode of vomiting. Patient also reports a decreased appetite yesterday and a Tmax of 102. She took Tylenol with minimal relief (last dose at 8 am). Denies cough, congestion, light sensitivity, neck pain or stiffness, recent travel, sick contacts, abdominal pain, hemoptysis and diarrhea. PMD: none provided Past Medical History Reviewed: Historical Data, Nursing Documentation, Vital Signs Vital Signs: Last Vital Signs Temp 98.4 F 04/29/18 18:40 Pulse 78 04/29/18 18:40 Resp 18 04/29/18 18:40 BP 116/78 04/29/18 18:40 Pulse Ox 99 04/29/18 18:40 - Medical History PMH: Migraine - Surgical History Surgical History: (x2) - Family History Family History: States: Unknown Family Hx - Home Medications Home Medications: Ambulatory Orders Medication Instructions Recorded Ibuprofen [Motrin] 600 mg PO TID PRN #30 tab 07/08/16 Naproxen [Naprosyn] 1 tab PO BID PRN #60 tab 08/05/16 Albuterol HFA [Ventolin HFA 90 2 puff IH [id number] PRN #0 puff 09/04/16 mcg/actuation (8 g)] Promethazine DM [Phenergan DM 5 ml PO Q6 PRN #120 ml 09/04/16 Syrup] Naproxen [Naprosyn] 500 mg PO BID PRN #20 tablet 09/24/16 Albuterol HFA [Ventolin HFA 90 2 puff IH Q6 #200 puff 12/21/16 mcg/actuation (8 g)] Dextromethorphan Polistirex 30 mg PO BID #100 ml 12/21/16 [Delsym] Oseltamivir Phosphate [Tamiflu] 75 mg PO BID #10 capsule 12/21/16 Ondansetron ODT [Zofran ODT] 4 mg PO Q6 PRN #10 odt 03/09/17 Multivit/Folic Acid/I 1 tab PO DAILY #30 tab 03/09/17 [ Plus] Ibuprofen [Motrin Tab] 600 mg PO Q8 PRN #30 tab 03/24/17 Penicillin VK [Penicillin VK Tab] 500 mg PO Q6 #40 tab 03/24/17 Nitrofurantoin Macrocrystals 100 mg PO BID #14 cap 05/24/17 [Macrobid] Phenazopyridine HCl [Pyridium] 200 mg PO TID PRN #10 tablet 05/24/17 Benzonatate [Tessalon Perle] 100 mg PO Q8 PRN #30 capsule 06/04/17 Fluticasone Propionate [Flonase] 2 spr NS DAILY PRN #1 bottle 06/04/17 Cephalexin [cephalexin] 500 mg PO BID #20 cap 10/06/17 Dicyclomine [Bentyl] 20 mg PO Q12 PRN #20 tab 04/14/18 Ondansetron ODT [Zofran ODT] 4 mg PO Q6 PRN #8 odt 04/14/18 Metoclopramide [Reglan] 10 mg PO TID PRN #10 tab 04/29/18 Naproxen [Naprosyn] 500 mg PO BID PRN #10 tab 04/29/18 - Allergies Allergies/Adverse Reactions: Allergies Allergy/AdvReac Type Severity Reaction Status Date / Time No Known Allergies Allergy Verified 04/29/18 14:54 Review of Systems ROS Statement: Except As Marked, All Systems Reviewed And Found Negative Constitutional: Positive for: Fever ENT: Positive for: Throat Pain Gastrointestinal: Positive for: Vomiting Neurological: Positive for: Headache Physical Exam - Reviewed Nursing Documentation Reviewed: Yes Vital Signs Reviewed: Yes - Physical Exam Appears: Positive for: No Acute Distress Head Exam: Positive for: ATRAUMATIC, NORMAL INSPECTION, NORMOCEPHALIC Skin: Positive for: Normal Color, Warm, Dry Eye Exam: Positive for: EOMI, Normal appearance, PERRL ENT: Positive for: TM Is/Are (non- erythematous and non-bulging), Pharyngeal Erythema (and tonsillar erythema ). Negative for: Tonsillar Exudate Neck: Positive for: Normal, Painless ROM, Supple Cardiovascular/Chest: Positive for: Regular Rate, Rhythm. Negative for: Murmur Respiratory: Positive for: Normal Breath Sounds. Negative for: Respiratory Distress Gastrointestinal/Abdominal: Positive for: Normal Exam, Soft. Negative for: Tenderness Extremity: Positive for: Normal ROM. Negative for: Deformity Neurologic/Psych: Positive for: Alert, Oriented (3). Negative for: Motor/ Sensory Deficits - Laboratory Results Result Diagrams: 04/29/18 16:24 04/29/18 16:24 - ECG O2 Sat by Pulse Oximetry: 98 (RA) Pulse Ox Interpretation: Normal Medical Decision Making Medical Decision Making: Time: 15:16 Initial Plan: --VBG --CMP --CBC --Tylenol 975 mg PO --Toradol 30 mg IVP --Reglan 10 mg IVPB --NS IV 1,000 mls/hr --Zofran 4 mg IVP --Blood cx --influenza AB --rapid strep --UA On re-evaluation, pt. reports good relief of headache and nausea. States she is feeling much better. Sore throat has improved but still present. Repeat VS improved. Scribe Attestation: Documented by Pam Gamez, acting as a scribe for Luis Gibbs PA-C Provider Scribe Attestation: All medical record entries made by the Scribe were at my direction and personally dictated by me. I have reviewed the chart and agree that the record accurately reflects my personal performance of the history, physical exam, medical decision making, and the department course for this patient. I have also personally directed, reviewed, and agree with the discharge instructions and disposition. Disposition - Clinical Impression Clinical Impression: Viral pharyngitis, Fever in adult - Patient ED Disposition Is Patient to be Admitted: No - Disposition Referrals: [facility] [Outside] Disposition: Routine/Home Disposition Time: 16:14 Condition: STABLE Additional Instructions: Follow up with PMD for further evaluation. Return to ED immediately if symptoms worsen. Prescriptions: Metoclopramide [Reglan] 10 mg PO TID PRN #10 tab PRN Reason: nausea or headache Naproxen [Naprosyn] 500 mg PO BID PRN #10 tab PRN Reason: Pain Instructions: Viral Pharyngitis, Fever, Adult (DC) Forms: [employer] ([place]o), [facility] ED School/Work Excuse Print Language: CZECH
[2018-04-29 16:30] LABS: BASO % 0.4 % (0.0-2.0); EOS # 0.1 K/uL (0.0-0.7); EOS % 1.9 % (0.0-4.0); HEMOGLOBIN 15.3 g/dL (12.0-16.0); LYMPH # 0.6 K/uL (1.0-4.3); LYMPH % 9.1 % (20.0-40.0); MEAN CELL VOLUME 85.3 fl (81.0-99.0); MEAN CORPUSCULAR HEMOGLOBIN 28.2 pg (27.0-31.0); MEAN CORPUSCULAR HGB CONC 33.1 g/dL (33.0-37.0); MEAN PLATELET VOLUME 7.9 fl (7.2-11.7); MONO # 0.3 K/uL (0.0-0.8); MONO % 4.3 % (0.0-10.0); NEUT # 5.8 K/uL (1.8-7.0); NEUT % 84.3 % (50.0-75.0); NRBC % 0.1 % (0.0-0.0); PLATELET COUNT 321 K/uL (130-400); RBC 5.41 Mil/uL (3.80-5.20); WHITE BLOOD COUNT 6.9 K/uL (4.8-10.8)
[2018-04-29 16:35] LABS: VENOUS BLOOD GAS BASE EXCESS 0.6 mmol/L (0.0-2.0); VENOUS BLOOD GAS PCO2 47 mmHg (40-60); VENOUS BLOOD GAS PO2 21 mm/Hg (30-55); VENOUS BLOOD PH 7.36 (7.32-7.43)
[2018-04-29 16:37] VITALS: RESP 18
[2018-04-29 17:12] LABS: SQUAMOUS EPITHIAL 36 /hpf (0-5); URINE BACTERIA RARE (<OCC); URINE BILIRUBIN NEGATIVE (NEGATIVE); URINE BLOOD SMALL (NEGATIVE); URINE CLARITY CLOUDY (Clear); URINE COLOR YELLOW (YELLOW); URINE GLUCOSE (UA) NEG (Normal); URINE LEUKOCYTE ESTERASE NEG Leu/uL (Negative); URINE PROTEIN NEGATIVE (NEGATIVE); URINE UROBILINOGEN 0.2-1.0 mg/dL (0.2-1.0)
[2018-04-29 17:22] LABS: ALB/GLOB RATIO 1.1 (1.0-2.1); ALBUMIN 4.5 g/dL (3.5-5.0); ALT/SGPT 30 U/L (9-52); AST/SGOT 29 U/L (14-36); BLOOD UREA NITROGEN 7 mg/dl (7-17); CALCIUM 9.6 mg/dL (8.4-10.2); GFR AFRICAN-AMERICAN > 60; GFR NON-AFRICAN AMERICAN > 60
[2018-04-29 17:30] LABS: EOSINOPHIL 4 % (0-7); LYMPHOCYTE 7 % (20-50); MONOCYTE 2 % (0-10); NEUTROPHIL 87 % (42-75); TOTAL CELLS COUNTED 100
[2018-04-29 17:31] LABS: PLATELET ESTIMATE NORMAL (NORMAL)
[2018-04-29 19:40] VITALS: BP 116/78; PULSE 78; TEMP 98.4
[2018-04-30 12:03] VITALS: O2SAT 98
== END 2018-04-29 18:45 | disposition home or self-care (01) ==
LOC: H.ER 14:13
DX: J02.9 Acute pharyngitis, unspecified (principal); R50.9 Fever, unspecified
CPT/HCPCS: 80053; 81003; 81025; 82803; 85025; 87040; 87070; 87430; 87804; 96374; 96375; 99284; J1885; J2405; J2765; J7030

== ENCOUNTER 2018-08-21 13:59 | Emergency (ER) | payer MEDICAID ==
[2018-08-21 14:00] VITALS: BMI 28.7
[2018-08-21 14:12] VITALS: TEMP 98.1; O2SAT 98
--- NOTE | 2018-08-21 14:21 | ED PDOC ---
HPI: CCC, URI, Sore Throat Time Seen by Provider: 08/21/18 14:16 Chief Complaint (Nursing): Fever Chief Complaint (Provider): Cough History Per: Patient History/Exam Limitations: no limitations Onset/Duration Of Symptoms: Days (2) Additional Complaint(s): Pt. with cough, nasal congestion, runny nose. Body aches. No dyspnea, chest pain, weakness, nausea, vomit, headaches. Has fever. Took ibuprofen today. No leg pain. No hormone use. Past Medical History Reviewed: Nursing Documentation, Vital Signs Vital Signs: Last Vital Signs Temp 98.1 F 08/21/18 14:10 Pulse 85 08/21/18 14:10 Resp 16 08/21/18 14:10 BP 98/67 L 08/21/18 14:10 Pulse Ox 98 08/21/18 14:10 - Medical History PMH: Migraine - Surgical History Surgical History: (x2) - Family History Family History: States: Unknown Family Hx - Home Medications Home Medications: Ambulatory Orders Medication Instructions Recorded Ibuprofen [Motrin] 600 mg PO TID PRN #30 tab 07/08/16 Naproxen [Naprosyn] 1 tab PO BID PRN #60 tab 08/05/16 Albuterol HFA [Ventolin HFA 90 2 puff IH [id number] PRN #0 puff 09/04/16 mcg/actuation (8 g)] Promethazine DM [Phenergan DM 5 ml PO Q6 PRN #120 ml 09/04/16 Syrup] Naproxen [Naprosyn] 500 mg PO BID PRN #20 tablet 09/24/16 Albuterol HFA [Ventolin HFA 90 2 puff IH Q6 #200 puff 12/21/16 mcg/actuation (8 g)] Dextromethorphan Polistirex 30 mg PO BID #100 ml 12/21/16 [Delsym] Oseltamivir Phosphate [Tamiflu] 75 mg PO BID #10 capsule 12/21/16 Ondansetron ODT [Zofran ODT] 4 mg PO Q6 PRN #10 odt 03/09/17 Multivit/Folic Acid/I 1 tab PO DAILY #30 tab 03/09/17 [ Plus] Ibuprofen [Motrin Tab] 600 mg PO Q8 PRN #30 tab 03/24/17 Penicillin VK [Penicillin VK Tab] 500 mg PO Q6 #40 tab 03/24/17 Nitrofurantoin Macrocrystals 100 mg PO BID #14 cap 05/24/17 [Macrobid] Phenazopyridine HCl [Pyridium] 200 mg PO TID PRN #10 tablet 05/24/17 Benzonatate [Tessalon Perle] 100 mg PO Q8 PRN #30 capsule 06/04/17 Fluticasone Propionate [Flonase] 2 spr NS DAILY PRN #1 bottle 06/04/17 Cephalexin [cephalexin] 500 mg PO BID #20 cap 10/06/17 Dicyclomine [Bentyl] 20 mg PO Q12 PRN #20 tab 04/14/18 Ondansetron ODT [Zofran ODT] 4 mg PO Q6 PRN #8 odt 04/14/18 Metoclopramide [Reglan] 10 mg PO TID PRN #10 tab 04/29/18 Naproxen [Naprosyn] 500 mg PO BID PRN #10 tab 04/29/18 Benzonatate [Tessalon Perles] 100 mg PO BID PRN 5 Days sgl 08/21/18 Ibuprofen [Motrin] 600 mg PO TID 7 Days tab 08/21/18 - Allergies Allergies/Adverse Reactions: Allergies Allergy/AdvReac Type Severity Reaction Status Date / Time No Known Allergies Allergy Verified 08/21/18 14:09 Review of Systems Constitutional: Positive for: Fever. Negative for: Weakness Eyes: Negative for: Vision Change ENT: Positive for: Nose Pain, Nose Discharge, Nose Congestion Cardiovascular: Negative for: Chest Pain, Edema, Light Headedness Respiratory: Positive for: Cough. Negative for: Shortness of Breath, Sputum Gastrointestinal: Negative for: Nausea, Vomiting, Abdominal Pain, Diarrhea Musculoskeletal: Negative for: Neck Pain Skin: Negative for: Rash Neurological: Negative for: Weakness, Headache, Dizziness Physical Exam - Reviewed Nursing Documentation Reviewed: Yes Vital Signs Reviewed: Yes - Physical Exam Appears: Positive for: Non-toxic, No Acute Distress Head Exam: Positive for: ATRAUMATIC, NORMAL INSPECTION, NORMOCEPHALIC Eye Exam: Positive for: EOMI, Normal appearance, PERRL ENT: Positive for: Nasal Congestion. Negative for: Pharyngeal Erythema, Tonsillar Exudate Neck: Positive for: Normal, Painless ROM, Supple Cardiovascular/Chest: Positive for: Regular Rate, Rhythm. Negative for: Edema Respiratory: Positive for: CNT, Normal Breath Sounds Gastrointestinal/Abdominal: Positive for: Normal Exam, Soft. Negative for: Tenderness Back: Positive for: Normal Inspection. Negative for: L CVA Tenderness, R CVA Tenderness Extremity: Positive for: Normal ROM. Negative for: Tenderness, Pedal Edema - ECG O2 Sat by Pulse Oximetry: 98 Pulse Ox Interpretation: Normal - Progress ED Course And Treament: 1416: Stable. AAOx3. Pain free. Tolerated PO. Fu with pcp. Disposition - Clinical Impression Clinical Impression: URI (upper respiratory infection) - Patient ED Disposition Is Patient to be Admitted: No Counseled Patient/Family Regarding: Diagnosis, Need For Followup, Rx Given - Disposition Referrals: [facility] [Outside] - 08/22/18 Disposition: Routine/Home Disposition Time: 14:20 Condition: STABLE Additional Instructions: Return if not better in 3 days. Prescriptions: Benzonatate [Tessalon Perles] 100 mg PO BID PRN 5 Days sgl PRN Reason: Cough Ibuprofen [Motrin] 600 mg PO TID 7 Days tab Instructions: Viral Upper Respiratory Infection, Adult (DC) Forms: [employer] (Lithuanian), [facility] ED School/Work Excuse
[2018-08-21 14:37] VITALS: BP 110/70; PULSE 72; RESP 20
== END 2018-08-21 14:37 | disposition home or self-care (01) ==
LOC: H.ER 13:59
DX: J06.9 Acute upper respiratory infection, unspecified (principal)

== ENCOUNTER 2018-08-25 21:31 | Emergency (ER) | payer SELFPAY ==
[2018-08-25 21:31] VITALS: BMI 28.7
[2018-08-25 22:40] VITALS: TEMP 98.3; O2SAT 100
--- NOTE | 2018-08-25 23:16 | ED PDOC ---
HPI: Abdomen Time Seen by Provider: 08/25/18 22:55 Chief Complaint (Nursing): Abdominal Pain Chief Complaint (Provider): Left sided pelvic pain History Per: Patient History/Exam Limitations: no limitations Onset/Duration Of Symptoms: Days Outside of [place] travel?: No Current Symptoms Are (Timing): Still Present Additional Complaint(s): 28 yo female with no medical problems presents with left sided pelvic pain x 2 days. Pt states pain is worse today, sharp. Denies similar in the past. PT denies N/V/D. No vaginal discharge. Pt states she has not been sexually active in approx. 6 months. No concern for STD. Pt states she does see [employer] yearly. Past Medical History Reviewed: Historical Data, Nursing Documentation, Vital Signs Vital Signs: Last Vital Signs Temp 98.3 F 08/25/18 22:37 Pulse 76 08/25/18 22:37 Resp 14 08/25/18 22:37 BP 105/75 08/25/18 22:37 Pulse Ox 100 08/25/18 22:37 - Medical History PMH: Migraine - Surgical History Surgical History: (x2) - Family History Family History: States: Unknown Family Hx - Home Medications Home Medications: Ambulatory Orders Medication Instructions Recorded Ibuprofen [Motrin] 600 mg PO TID PRN #30 tab 07/08/16 Naproxen [Naprosyn] 1 tab PO BID PRN #60 tab 08/05/16 Albuterol HFA [Ventolin HFA 90 2 puff IH [id number] PRN #0 puff 09/04/16 mcg/actuation (8 g)] Promethazine DM [Phenergan DM 5 ml PO Q6 PRN #120 ml 09/04/16 Syrup] Naproxen [Naprosyn] 500 mg PO BID PRN #20 tablet 09/24/16 Albuterol HFA [Ventolin HFA 90 2 puff IH Q6 #200 puff 12/21/16 mcg/actuation (8 g)] Dextromethorphan Polistirex 30 mg PO BID #100 ml 12/21/16 [Delsym] Oseltamivir Phosphate [Tamiflu] 75 mg PO BID #10 capsule 12/21/16 Ondansetron ODT [Zofran ODT] 4 mg PO Q6 PRN #10 odt 03/09/17 Multivit/Folic Acid/I 1 tab PO DAILY #30 tab 03/09/17 [ Plus] Ibuprofen [Motrin Tab] 600 mg PO Q8 PRN #30 tab 03/24/17 Penicillin VK [Penicillin VK Tab] 500 mg PO Q6 #40 tab 03/24/17 Nitrofurantoin Macrocrystals 100 mg PO BID #14 cap 05/24/17 [Macrobid] Phenazopyridine HCl [Pyridium] 200 mg PO TID PRN #10 tablet 05/24/17 Benzonatate [Tessalon Perle] 100 mg PO Q8 PRN #30 capsule 06/04/17 Fluticasone Propionate [Flonase] 2 spr NS DAILY PRN #1 bottle 06/04/17 Cephalexin [cephalexin] 500 mg PO BID #20 cap 10/06/17 Dicyclomine [Bentyl] 20 mg PO Q12 PRN #20 tab 04/14/18 Ondansetron ODT [Zofran ODT] 4 mg PO Q6 PRN #8 odt 04/14/18 Metoclopramide [Reglan] 10 mg PO TID PRN #10 tab 04/29/18 Naproxen [Naprosyn] 500 mg PO BID PRN #10 tab 04/29/18 Benzonatate [Tessalon Perles] 100 mg PO BID PRN 5 Days sgl 08/21/18 Ibuprofen [Motrin] 600 mg PO TID 7 Days tab 08/21/18 - Allergies Allergies/Adverse Reactions: Allergies Allergy/AdvReac Type Severity Reaction Status Date / Time No Known Allergies Allergy Verified 08/25/18 22:38 Review of Systems ROS Statement: Except As Marked, All Systems Reviewed And Found Negative Constitutional: Negative for: Fever, Chills Cardiovascular: Negative for: Chest Pain, Palpitations Gastrointestinal: Positive for: Abdominal Pain. Negative for: Nausea, Vomiting, Rectal Pain Genitourinary Female: Negative for: Dysuria, Frequency Physical Exam - Reviewed Nursing Documentation Reviewed: Yes Vital Signs Reviewed: Yes - Physical Exam Appears: Positive for: Well, Non-toxic, No Acute Distress Head Exam: Positive for: ATRAUMATIC, NORMAL INSPECTION, NORMOCEPHALIC Skin: Positive for: Normal Color, Warm, DRY Eye Exam: Positive for: Normal appearance ENT: Positive for: Normal ENT Inspection Neck: Positive for: Normal, Painless ROM Cardiovascular/Chest: Positive for: Regular Rate, Rhythm Respiratory: Positive for: Normal Breath Sounds. Negative for: Accessory Muscle Use, Respiratory Distress Gastrointestinal/Abdominal: Positive for: Normal Exam, Soft, Tenderness (left pelvic ) Back: Positive for: Normal Inspection Extremity: Positive for: Normal ROM Neurologic/Psych: Positive for: Alert, Oriented - ECG O2 Sat by Pulse Oximetry: 100 Medical Decision Making Medical Decision Making: (-) No sign of infection on urine dip in ER. IV toradaol given for pain. Endorsed to Jurgen Gibbs PA-C pending labs and US. Disposition - Clinical Impression Clinical Impression: Abdominal pain - Patient ED Disposition Is Patient to be Admitted: Transfer of Care - Disposition Disposition: Transfer of Care Disposition Time: 23:56 Condition: STABLE Forms: [employer] (Moroccan)
[2018-08-25 23:55] LABS: BASO # 0.1 K/uL (0.0-0.2); BASO % 0.4 % (0.0-2.0); EOS # 0.2 K/uL (0.0-0.7); EOS % 1.2 % (0.0-4.0); HEMOGLOBIN 14.2 g/dL (12.0-16.0); LYMPH # 1.3 K/uL (1.0-4.3); MEAN CELL VOLUME 86.5 fl (81.0-99.0); MEAN CORPUSCULAR HEMOGLOBIN 28.4 pg (27.0-31.0); MEAN CORPUSCULAR HGB CONC 32.8 g/dL (33.0-37.0); MEAN PLATELET VOLUME 7.9 fl (7.2-11.7); MONO # 0.6 K/uL (0.0-0.8); MONO % 4.3 % (0.0-10.0); NEUT % 84.1 % (50.0-75.0); RBC 5.01 Mil/uL (3.80-5.20); RED CELL DISTRIBUTION WIDTH 15.2 % (11.5-14.5); WHITE BLOOD COUNT 13.1 K/uL (4.8-10.8)
[2018-08-26 00:03] LABS: ALB/GLOB RATIO 1.1 (1.0-2.1); ALBUMIN 4.4 g/dL (3.5-5.0); ALT/SGPT 39 U/L (9-52); AST/SGOT 35 U/L (14-36); BLOOD UREA NITROGEN 11 mg/dl (7-17); CALCIUM 10.1 mg/dL (8.4-10.2); GFR NON-AFRICAN AMERICAN > 60
--- NOTE | 2018-08-26 02:48 | ED PDOC ---
- Laboratory Results Result Diagrams: 08/25/18 23:40 08/25/18 23:40 - ECG O2 Sat by Pulse Oximetry: 100 - Progress ED Course And Treament: 1999 Signed out to me pending US results 023 TVUS: no acute abnormality other than a small amount of free fluid sin the cul -de-sac. On re-valuation, pt. reports mild pain improvement but is still present. LLQ tenderness noted. CT abd/pelvis w/ IV contrast ordered. 041 CT abd/pelvis: enteritis; complex 2 cm R ovarian cyst. Informed of results and advised to f/u with [employer] and PMD for further evaluation. Disposition - Clinical Impression Clinical Impression: Enteritis - POA Present On Arrival: None - Disposition Referrals: [facility] [Outside] Disposition: Routine/Home Disposition Time: 04:25 Condition: IMPROVED Additional Instructions: SOLA FLORES, thank you for letting us take care of you today. Your provider was Jeff Carbajal MD and you were treated for ABD PAIN. The emergency medical care you received today was directed at your acute symptoms. If you were prescribed any medication, please fill it and take as directed. It may take sev eral days for your symptoms to resolve. Return to the Emergency Department if your symptoms worsen, do not improve, or if you have any other problems. Please contact your doctor or call one of the physicians/clinics you have been referred to that are listed on the Patient Visit Information form that is included in your discharge packet. Bring any paperwork you were given at discharge with you along with any medications you are taking to your follow up visit. Our treatment cannot replace ongoing medical care by a primary care provider outside of the emergency department. Thank you for allowing the [facility] team to be part of your care today. If you had an X-Ray or CT scan: A Radiologist will review the ED reading if any change in treatment is needed we will contact you. If you had a blood, urine, or wound culture: It will take several days for the results, if any change in treatment is needed we will contact you. If you had an STI test: It will take 48 hours for the results. Please call after 1 week if you have not heard back. Prescriptions: RX: Ciprofloxacin [Cipro] 500 mg PO BID #14 tab Dicyclomine [Bentyl] 20 mg PO TID PRN #10 tab PRN Reason: Constipation metroNIDAZOLE [Flagyl] 500 mg PO BID #14 tab Instructions: Stomach Ache and Stomach Upset Forms: [facility] (Beninese)
[2018-08-26] MEDS ORDERED: Iohexol 300 100 ML IJ ONE (03:22)
[2018-08-26] MEDS ORDERED: Sodium Chloride 0.9% 50 ML IV ONE (03:22)
[2018-08-26 05:17] VITALS: BP 108/72; PULSE 74; RESP 16
--- NOTE | 2018-08-26 11:44 | CT ---
Date of service: 08/26/2018 PROCEDURE: CT Abdomen and Pelvis with contrast HISTORY: Left lower quadrant pain and leukocytosis. LMP 08/07/2018 COMPARISON: None. TECHNIQUE: Intravenous contrast dose: 90 cc Omnipaque 300 Radiation dose: Total exam DLP = 303.89 mGy-cm. This CT exam was performed using one or more of the following dose reduction techniques: Automated exposure control, adjustment of the mA and/or kV according to patient size, and/or use of iterative reconstruction technique. FINDINGS: LOWER THORAX: Unremarkable. LIVER: Unremarkable. No gross lesion or ductal dilatation. GALLBLADDER AND BILE DUCTS: Unremarkable. PANCREAS: Unremarkable. No gross lesion or ductal dilatation. SPLEEN: Unremarkable. ADRENALS: Unremarkable. No mass. KIDNEYS AND URETERS: Unremarkable. No hydronephrosis. No solid mass. VASCULATURE: Unremarkable. No aortic aneurysm. BOWEL: Constipation without fecal impaction or obstruction. APPENDIX: Normal appendix. PERITONEUM: Trace free fluid identified in the pelvis/cul de sac. LYMPH NODES: Unremarkable. No enlarged lymph nodes. BLADDER: Unremarkable. REPRODUCTIVE: Cyst in the right adnexa with deformity of the wall and contrast-enhancing characteristics reflective ruptured adnexal cyst. BONES: No acute fracture. OTHER FINDINGS: None. IMPRESSION: No abnormalities left lower quadrant to account for the clinical presentation. Ruptured right adnexal cyst and trace fluid in the cul-de-sac. Constipation without fecal impaction or obstruction. Concordant results (preliminary interpretation) provided by [employer]. Procedure Completed: 03:31 Preliminary Report: Dictated and Authenticated: 04:16. Final Interpretation: 11:43. August 26, 2018
--- NOTE | 2018-08-26 13:26 | US ---
Date of service: 08/26/2018 HISTORY: Left-sided pelvic pain. Torsion suspected. LMP 08/07/2018 COMPARISON: 02/19/2014 TECHNIQUE: Transvaginal only. Real -time technique with 2D, duplex and color Doppler FINDINGS: UTERUS: Measures 3.6 x 5 x 7.3 cm. Normal in size and appearance. No fibroid or other mass lesion seen. ENDOMETRIUM: Measures 11.9 mm in diameter. No ultrasound findings to suggest gestational sac, fluid, debris, mass or polyp or other pathologic process within the endometrium. CERVIX: No cervical abnormality identified. RIGHT OVARY: Measures 2.7 x 3.7 x 3.1 cm. No solid mass. Normal flow. Multiple subcentimeter follicles. LEFT OVARY: Measures 1.7 x 3.9 x 2.0 cm. No solid mass. Normal flow. Multiple subcentimeter follicles. FREE FLUID: Trace free fluid identified in the pelvis/cul de sac. OTHER FINDINGS: None. IMPRESSION: Negative study for torsion. No acute findings. Concordant results (preliminary interpretation) provided by [employer]. Procedure Completed: 01:12 Preliminary Report: Dictated and Authenticated: 02:27 Final Interpretation: 13:24 August 26, 2018
== END 2018-08-26 05:18 | disposition home or self-care (01) ==
LOC: H.ER 21:31
DX: K52.9 Noninfective gastroenteritis and colitis, unspecified (principal); K59.00 Constipation, unspecified
CPT/HCPCS: 74177; 76830; 80053; 81025; 85025; 87491; 87591; 96374; 99283; J1885; Q9967

== ENCOUNTER 2018-08-31 11:41 | Emergency (ER) | payer OTHER ==
[2018-08-31 11:49] VITALS: BP 108/71; PULSE 90; RESP 18; TEMP 97; O2SAT 99; BMI 28.3
[2018-08-31] MEDS ORDERED: cefTRIAXone (Rocephin) 250 mg Inj IM ONE (12:34)
--- NOTE | 2018-08-31 12:42 | ED PDOC ---
HPI: Female Pain Time Seen by Provider: 08/31/18 11:53 Chief Complaint (Nursing): Female Genitourinary Chief Complaint (Provider): Female Genitourinary History Per: Patient History/Exam Limitations: no limitations Onset/Duration Of Symptoms: Days (x 1 week) Current Symptoms Are (Timing): Still Present Quality Of Discomfort: "Pain" Additional Complaint(s): 28 year old female presents to the ED after she received a call to return due to abnormal labs. Patient was diagnosed with gonorrhea and chlamydia. Her previous ED visit on August 25 was due to pelvic pain. She had a CT and US done that revealed a small amount of free fluid in her pelvis and a left ovarian cyst as well as a UTI which she was given a 1 week course of Cipro for. After speaking to patient, she denies fever and chills but reports that pelvic pain persists. She also started her period yesterday. Otherwise, denies vaginal discharge and a recent history of unprotected sex. PMD: none provided Abnormal Vaginal Bleeding: No Last Menstral Period: now Past Medical History Reviewed: Historical Data, Nursing Documentation, Vital Signs Vital Signs: Last Vital Signs Temp 97 F L 08/31/18 11:48 Pulse 90 08/31/18 11:48 Resp 18 08/31/18 11:48 BP 108/71 08/31/18 11:48 Pulse Ox 99 08/31/18 11:48 - Medical History PMH: Migraine - Surgical History Surgical History: (x2) - Family History Family History: States: Unknown Family Hx - Home Medications Home Medications: Ambulatory Orders Medication Instructions Recorded Ibuprofen [Motrin] 600 mg PO TID PRN #30 tab 07/08/16 Naproxen [Naprosyn] 1 tab PO BID PRN #60 tab 08/05/16 Albuterol HFA [Ventolin HFA 90 2 puff IH [id number] PRN #0 puff 09/04/16 mcg/actuation (8 g)] Promethazine DM [Phenergan DM 5 ml PO Q6 PRN #120 ml 09/04/16 Syrup] Naproxen [Naprosyn] 500 mg PO BID PRN #20 tablet 09/24/16 Albuterol HFA [Ventolin HFA 90 2 puff IH Q6 #200 puff 12/21/16 mcg/actuation (8 g)] Dextromethorphan Polistirex 30 mg PO BID #100 ml 12/21/16 [Delsym] Oseltamivir Phosphate [Tamiflu] 75 mg PO BID #10 capsule 12/21/16 Ondansetron ODT [Zofran ODT] 4 mg PO Q6 PRN #10 odt 03/09/17 Multivit/Folic Acid/I 1 tab PO DAILY #30 tab 03/09/17 [ Plus] Ibuprofen [Motrin Tab] 600 mg PO Q8 PRN #30 tab 03/24/17 Penicillin VK [Penicillin VK Tab] 500 mg PO Q6 #40 tab 03/24/17 Nitrofurantoin Macrocrystals 100 mg PO BID #14 cap 05/24/17 [Macrobid] Phenazopyridine HCl [Pyridium] 200 mg PO TID PRN #10 tablet 05/24/17 Benzonatate [Tessalon Perle] 100 mg PO Q8 PRN #30 capsule 06/04/17 Fluticasone Propionate [Flonase] 2 spr NS DAILY PRN #1 bottle 06/04/17 Cephalexin [cephalexin] 500 mg PO BID #20 cap 10/06/17 Dicyclomine [Bentyl] 20 mg PO Q12 PRN #20 tab 04/14/18 Ondansetron ODT [Zofran ODT] 4 mg PO Q6 PRN #8 odt 04/14/18 Metoclopramide [Reglan] 10 mg PO TID PRN #10 tab 04/29/18 Naproxen [Naprosyn] 500 mg PO BID PRN #10 tab 04/29/18 Benzonatate [Tessalon Perles] 100 mg PO BID PRN 5 Days sgl 08/21/18 Ibuprofen [Motrin] 600 mg PO TID 7 Days tab 08/21/18 Ciprofloxacin [Cipro] 500 mg PO BID #14 tab 08/26/18 Dicyclomine [Bentyl] 20 mg PO TID PRN #10 tab 08/26/18 metroNIDAZOLE [Flagyl] 500 mg PO BID #14 tab 08/26/18 Doxycycline Hyclate 100 mg PO BID 14 Days cap 08/31/18 metroNIDAZOLE [Flagyl] 500 mg PO BID 14 Days tab 08/31/18 - Allergies Allergies/Adverse Reactions: Allergies Allergy/AdvReac Type Severity Reaction Status Date / Time No Known Allergies Allergy Verified 08/25/18 22:38 Review of Systems ROS Statement: Except As Marked, All Systems Reviewed And Found Negative Constitutional: Negative for: Fever, Chills Gastrointestinal: Positive for: Abdominal Pain Genitourinary Female: Positive for: Pelvic Pain. Negative for: Vaginal Discharge Physical Exam - Reviewed Nursing Documentation Reviewed: Yes Vital Signs Reviewed: Yes - Physical Exam Appears: Positive for: Non-toxic, No Acute Distress Head Exam: Positive for: ATRAUMATIC, NORMAL INSPECTION, NORMOCEPHALIC Skin: Positive for: Normal Color, Warm, Dry Eye Exam: Positive for: EOMI, Normal appearance, PERRL Neck: Positive for: Normal, Painless ROM, Supple Cardiovascular/Chest: Positive for: Regular Rate, Rhythm. Negative for: Murmur Respiratory: Positive for: Normal Breath Sounds. Negative for: Respiratory Distress Gastrointestinal/Abdominal: Positive for: Soft, Tenderness (mild suprapubic tenderness) Extremity: Positive for: Normal ROM (x 4). Negative for: Deformity Neurologic/Psych: Positive for: Alert, Oriented (x 3). Negative for: Motor/Sensory Deficits - Laboratory Results Result Diagrams: 08/31/18 13:42 08/31/18 13:42 - ECG O2 Sat by Pulse Oximetry: 99 (RA) Pulse Ox Interpretation: Normal Medical Decision Making Medical Decision Makin:26 Initial Plan: --CMP --urine dip --urine preg --CBC --Chlamydia --Blood cx --Urine cx --UA --Transvag US Medications administered for PID treatment: --Doxycycline hyclate 100 mg PO --Flagyl 500 mg PO --Rocephin 250 mg PO Pt on re-eval, doing well. reports no pain on re-eval. All results discussed at length, as well as safe sex practices Sent home on Doxy and Flagyl to continue. Pt educated on side effects of flagyl and cautioned no alcohol while on medication Scribe Attestation: Documented by Pam Gamez acting as a scribe for Rachel Michael PA-C Provider Scribe Attestation: All medical record entries made by the Scribe were at my direction and personally dictated by me. I have reviewed the chart and agree that the record accurately reflects my personal performance of the history, physical exam, medical decision making, and the department course for this patient. I have also personally directed, reviewed, and agree with the discharge instructions and disposition. Disposition - Clinical Impression Clinical Impression: PID (acute pelvic inflammatory disease) - Patient ED Disposition Is Patient to be Admitted: No - Disposition Disposition: Routine/Home Disposition Time: 16:12 Condition: STABLE Prescriptions: Doxycycline Hyclate 100 mg PO BID 14 Days cap metroNIDAZOLE [Flagyl] 500 mg PO BID 14 Days tab Instructions: Pelvic Inflammatory Disease Forms: [employer] (Kazakh)
[2018-08-31] MEDS ORDERED: cefTRIAXone (Rocephin) 250 mg Inj ONE (12:47)
[2018-08-31 13:52] LABS: BASO % 0.8 % (0.0-2.0); EOS # 0.2 K/uL (0.0-0.7); EOS % 3.3 % (0.0-4.0); HEMOGLOBIN 13.9 g/dL (12.0-16.0); LYMPH # 1.3 K/uL (1.0-4.3); LYMPH % 22.9 % (20.0-40.0); MEAN CELL VOLUME 86.8 fl (81.0-99.0); MEAN CORPUSCULAR HEMOGLOBIN 28.7 pg (27.0-31.0); MEAN PLATELET VOLUME 8.1 fl (7.2-11.7); MONO # 0.4 K/uL (0.0-0.8); MONO % 6.5 % (0.0-10.0); NEUT # 3.8 K/uL (1.8-7.0); NEUT % 66.5 % (50.0-75.0); NRBC % 0.1 % (0.0-0.0); RBC 4.84 Mil/uL (3.80-5.20); WHITE BLOOD COUNT 5.7 K/uL (4.8-10.8)
[2018-08-31 13:57] LABS: SQUAMOUS EPITHIAL 4 /hpf (0-5); URINE BACTERIA RARE (<OCC); URINE BILIRUBIN NEGATIVE (NEGATIVE); URINE BLOOD LARGE (NEGATIVE); URINE CLARITY SLIGHTY-CLOUDY (Clear); URINE COLOR YELLOW (YELLOW); URINE GLUCOSE (UA) NEG (Normal); URINE LEUKOCYTE ESTERASE NEG Leu/uL (Negative); URINE PROTEIN 30 mg/dL (NEGATIVE); URINE UROBILINOGEN 0.2-1.0 mg/dL (0.2-1.0)
--- NOTE | 2018-08-31 13:59 | US ---
Date of service: 08/31/2018 HISTORY: pelvic pain COMPARISON: None available. TECHNIQUE: Real-time transvaginal ultrasound examination of the pelvis was performed for pelvic pain. FINDINGS: UTERUS: Measures 7.6 x 3.7 x 5.0 cm. Normal in size and appearance. Tiny nabothian cyst is incidentally noted. ENDOMETRIUM: Measures 8 mm in diameter. Unremarkable. CERVIX: No cervical abnormality identified. RIGHT OVARY: Measures 3.7 x 2.6 x 2.3 cm. No solid mass. Normal flow. 13 millimeter x 13 millimeter small follicular cyst is seen in the right ovary. LEFT OVARY: Measures 3.7 x 2.3 x 2.4 cm. No solid mass. Normal flow. FREE FLUID: Minor amount of cul-de-sac fluid is noted, more than likely physiologic. OTHER FINDINGS: None. IMPRESSION: No evidence of ovarian torsion. No evidence of adnexal mass. Minimal physiologic fluid in the cul-de-sac.
[2018-08-31 14:03] LABS: ALBUMIN 4.4 g/dL (3.5-5.0); BLOOD UREA NITROGEN 8 mg/dl (7-17); CALCIUM 10.1 mg/dL (8.4-10.2); GFR NON-AFRICAN AMERICAN > 60
[2018-08-31 14:04] LABS: ALB/GLOB RATIO 1.1 (1.0-2.1); ALT/SGPT 42 U/L (9-52); AST/SGOT 33 U/L (14-36)
== END 2018-08-31 16:00 | disposition home or self-care (01) ==
LOC: H.ER 11:41
DX: N73.9 Female pelvic inflammatory disease, unspecified (principal)
CPT/HCPCS: 76830; 80053; 81003; 85025; 87040; 87086; 87491; 87591; 96372; 96374; 99284; J0696; J1885

== ENCOUNTER 2019-01-11 13:06 | Emergency (ER) | payer MEDICAID, OTHER ==
[2019-01-11 13:06] VITALS: BMI 28.3
[2019-01-11 13:29] VITALS: BP 101/71; PULSE 93; RESP 16; TEMP 97.8; O2SAT 100
--- NOTE | 2019-01-11 14:18 | ED PDOC ---
HPI: Headache Time Seen by Provider: 01/11/19 13:31 Chief Complaint (Nursing): Headache Chief Complaint (Provider): Headache History Per: Patient History/Exam Limitations: no limitations Associated Symptoms: Photophobia Additional Complaint(s): Sola Harris is a 28 year old female with a past medical history of migraines, who presents to the emergency department complaining of x3 days of atraumatic right sided headache. She states the headache is progressive in onset and is associated with sound and light sensitivity. Patient states that she is taking Alleve, Tylenol, and ibuprofen but has had no relief in symptoms. She last took Alleve at 8am this morning. Patient mentions that she has had this in the past but it is usually relieved with ibuprofen. She denies any fever, chills, neck pain, neck stiffness, nausea, vomiting, rash, head injury, chest pain, shortness of breath or abdominal pain. PMD: No provider Past Medical History Reviewed: Historical Data, Nursing Documentation, Vital Signs Vital Signs: Last Vital Signs Temp 97.8 F 01/11/19 13:25 Pulse 93 H 01/11/19 13:25 Resp 16 01/11/19 13:25 BP 101/71 01/11/19 13:25 Pulse Ox 100 01/11/19 13:25 - Medical History PMH: Migraine - Surgical History Surgical History: (x2) - Family History Family History: States: Unknown Family Hx - Home Medications Home Medications: Ambulatory Orders Medication Instructions Recorded Ibuprofen [Motrin] 600 mg PO TID PRN #30 tab 07/08/16 RX: Naproxen [Naprosyn] 1 tab PO BID PRN #60 tab 08/05/16 Albuterol HFA [Ventolin HFA 90 2 puff IH [id number] PRN #0 puff 09/04/16 mcg/actuation (8 g)] RX: Promethazine DM [Phenergan DM 5 ml PO Q6 PRN #120 ml 09/04/16 Syrup] RX: Naproxen [Naprosyn] 500 mg PO BID PRN #20 tablet 09/24/16 Dextromethorphan Polistirex 30 mg PO BID #100 ml 12/21/16 [Delsym] Oseltamivir Phosphate [Tamiflu] 75 mg PO BID #10 capsule 12/21/16 RX: Albuterol HFA [Ventolin HFA 90 2 puff IH Q6 #200 puff 12/21/16 mcg/actuation (8 g)] Ondansetron ODT [Zofran ODT] 4 mg PO Q6 PRN #10 odt 03/09/17 Multivit/Folic Acid/I 1 tab PO DAILY #30 tab 03/09/17 [ Plus] RX: Ibuprofen [Motrin Tab] 600 mg PO Q8 PRN #30 tab 03/24/17 RX: Penicillin VK [Penicillin VK 500 mg PO Q6 #40 tab 03/24/17 Tab] Nitrofurantoin Macrocrystals 100 mg PO BID #14 cap 05/24/17 [Macrobid] Phenazopyridine HCl [Pyridium] 200 mg PO TID PRN #10 tablet 05/24/17 Benzonatate [Tessalon Perle] 100 mg PO Q8 PRN #30 capsule 06/04/17 Fluticasone Propionate [Flonase] 2 spr NS DAILY PRN #1 bottle 06/04/17 Cephalexin [cephalexin] 500 mg PO BID #20 cap 10/06/17 Dicyclomine [Bentyl] 20 mg PO Q12 PRN #20 tab 04/14/18 Ondansetron ODT [Zofran ODT] 4 mg PO Q6 PRN #8 odt 04/14/18 Metoclopramide [Reglan] 10 mg PO TID PRN #10 tab 04/29/18 RX: Naproxen [Naprosyn] 500 mg PO BID PRN #10 tab 04/29/18 Benzonatate [Tessalon Perles] 100 mg PO BID PRN 5 Days sgl 08/21/18 Ibuprofen [Motrin] 600 mg PO TID 7 Days tab 08/21/18 Dicyclomine [Bentyl] 20 mg PO TID PRN #10 tab 08/26/18 RX: Ciprofloxacin [Cipro] 500 mg PO BID #14 tab 08/26/18 metroNIDAZOLE [Flagyl] 500 mg PO BID #14 tab 08/26/18 RX: Doxycycline Hyclate 100 mg PO BID 14 Days cap 08/31/18 RX: metroNIDAZOLE [Flagyl] 500 mg PO BID 14 Days tab 08/31/18 Metoclopramide [Reglan] 10 mg PO TID PRN #10 tab 02/16/19 Naproxen [Anaprox DS] 550 mg PO DAILY PRN #10 tab 01/11/19 - Allergies Allergies/Adverse Reactions: Allergies Allergy/AdvReac Type Severity Reaction Status Date / Time No Known Allergies Allergy Verified 01/11/19 13:25 Review of Systems ROS Statement: Except As Marked, All Systems Reviewed And Found Negative Constitutional: Negative for: Fever, Chills Cardiovascular: Negative for: Chest Pain Respiratory: Negative for: Shortness of Breath Gastrointestinal: Negative for: Nausea, Vomiting, Abdominal Pain Musculoskeletal: Negative for: Neck Pain (neck stiffness) Skin: Negative for: Rash Neurological: Positive for: Headache Physical Exam - Reviewed Nursing Documentation Reviewed: Yes Vital Signs Reviewed: Yes - Physical Exam Appears: Negative for: No Acute Distress (mild painful distress) Head Exam: Positive for: ATRAUMATIC, NORMOCEPHALIC Skin: Positive for: Normal Color, Warm, Dry Eye Exam: Positive for: Normal appearance, Other (positive photosensitivity) ENT: Positive for: Normal ENT Inspection Gastrointestinal/Abdominal: Positive for: Normal Exam, Soft. Negative for: Tenderness Neurologic/Psych: Positive for: Alert, Oriented (x3), Gait (steady and unassisted), Other (equal gis professor strength bilaterally). Negative for: Motor/Sensory Deficits - ECG O2 Sat by Pulse Oximetry: 100 (RA) Pulse Ox Interpretation: Normal - Progress Re-evaluation Time: 15:12 (Repeat neuro exam is non-focal. Advised to f/u with PMD or Dr. Buckner for further evaluation but is to return to ED immediately if symptoms worsen. Pt. verbalized correct understanding of f/u, plan, and care. ) Condition: Re-examined, Improved Medical Decision Making Medical Decision Making: Time: 1351 Plan: --ED urine --Toradol 30 mg IM Patient U-preg is negative. Scribe Attestation: Documented by Jovani Omer, acting as a scribe for Luis Hussein. Provider Scribe Attestation: All medical record entries made by the Scribe were at my direction and personally dictated by me. I have reviewed the chart and agree that the record accurately reflects my personal performance of the history, physical exam, medical decision making, and the department course for this patient. I have also personally directed, reviewed, and agree with the discharge instructions and disposition. Disposition - Clinical Impression Clinical Impression: Acute headache - Patient ED Disposition Is Patient to be Admitted: No - Disposition Referrals: Hardik Buckner MD [Medical Doctor] - Disposition: Routine/Home Disposition Time: 15:14 Condition: IMPROVED Additional Instructions: FOLLOW UP WITH DR. BUCKNER OR [facility] FOR FURTHER EVALUATION RETURN TO ED IMMEDIATELY IF SYMPTOMS WORSEN SOLA HARRIS, thank you for letting us take care of you today. Your provider was Marta Minaya MD and you were treated for HEADACHE. The emergency medical care you received today was directed at your acute symptoms. If you were prescribed any medication, please fill it and take as directed. It may take several days for your symptoms to resolve. Return to the Emergency Department if your symptoms worsen, do not improve, or if you have any other problems. Please contact your doctor or call one of the physicians/clinics you have been referred to that are listed on the Patient Visit Information form that is included in your discharge packet. Bring any paperwork you were given at discharge with you along with any medications you are taking to your follow up visit. Our treatment cannot replace ongoing medical care by a primary care provider outside of the emergency department. Thank you for allowing the [facility] team to be part of your care today. If you had an X-Ray or CT scan: A Radiologist will review the ED reading if any change in treatment is needed we will contact you. If you had a blood, urine, or wound culture: It will take several days for the results, if any change in treatment is needed we will contact you. If you had an STI test: It will take 48 hours for the results. Please call after 1 week if you have not heard back. Prescriptions: Metoclopramide [Reglan] 10 mg PO TID PRN #10 tab PRN Reason: headache or nausea Naproxen [Anaprox DS] 550 mg PO DAILY PRN #10 tab PRN Reason: Headache Instructions: Acute Headache (ED) Forms: [employer] (Norwegian)
== END 2019-01-11 15:23 | disposition home or self-care (01) ==
LOC: H.ER 13:06
DX: R51 Headache (principal)
CPT/HCPCS: 81025; 96372; 99285; J1885

== ENCOUNTER 2019-03-07 16:25 | Emergency (ER) | payer OTHER ==
[2019-03-07 16:26] VITALS: BMI 28.3
[2019-03-07] MEDS ORDERED: Sodium Chloride 0.9% 1,000 ML IV STA (17:43)
--- NOTE | 2019-03-07 17:47 | ED PDOC ---
HPI: Abdomen Time Seen by Provider: 03/07/19 17:06 Chief Complaint (Nursing): GI Problem Chief Complaint (Provider): VOMITING/DIARRHEA History Per: Patient (28 Y/O FEMALE LMP 01/31/2019 HERE FOR SYNCOPAL EPISODE AT WORK TODAY. NOTES VOMITING AND MULTIPLE EPISODES DIARRHEA YESTEDAY. NOTES ADDITIONAL SORE THROAT. NO FEVERS/CHILLS/URI/COUGH. DENIES ANY VAGINAL BLEEDI NG/ABDOMINAL PAIN. NOTES VAGINAL SPOTTING LAST WEEK.) Past Medical History Reviewed: Historical Data, Nursing Documentation, Vital Signs Vital Signs: Last Vital Signs Temp 97.4 F L 03/07/19 16:33 Pulse 96 H 03/07/19 16:33 Resp 18 03/07/19 16:33 BP 111/74 03/07/19 16:33 Pulse Ox 99 03/07/19 16:33 - Medical History PMH: Migraine - Surgical History Surgical History: (x2) - Family History Family History: States: Unknown Family Hx - Social History Current smoker - smoking cessation education provided: Yes (SOCIAL/LIGHT) - Immunization History Hx Tetanus Toxoid Vaccination: No Hx Influenza Vaccination: No Hx Pneumococcal Vaccination: No - Home Medications Home Medications: Ambulatory Orders Medication Instructions Recorded Ibuprofen [Motrin] 600 mg PO TID PRN #30 tab 07/08/16 Naproxen [Naprosyn] 1 tab PO BID PRN #60 tab 08/05/16 Albuterol HFA [Ventolin HFA 90 2 puff IH [id number] PRN #0 puff 09/04/16 mcg/actuation (8 g)] Promethazine DM [Phenergan DM 5 ml PO Q6 PRN #120 ml 09/04/16 Syrup] Naproxen [Naprosyn] 500 mg PO BID PRN #20 tablet 09/24/16 Albuterol HFA [Ventolin HFA 90 2 puff IH Q6 #200 puff 12/21/16 mcg/actuation (8 g)] Dextromethorphan Polistirex 30 mg PO BID #100 ml 12/21/16 [Delsym] Oseltamivir Phosphate [Tamiflu] 75 mg PO BID #10 capsule 12/21/16 Ondansetron ODT [Zofran ODT] 4 mg PO Q6 PRN #10 odt 03/09/17 Multivit/Folic Acid/I 1 tab PO DAILY #30 tab 03/09/17 [ Plus] Ibuprofen [Motrin Tab] 600 mg PO Q8 PRN #30 tab 03/24/17 Penicillin VK [Penicillin VK Tab] 500 mg PO Q6 #40 tab 03/24/17 Nitrofurantoin Macrocrystals 100 mg PO BID #14 cap 05/24/17 [Macrobid] Phenazopyridine HCl [Pyridium] 200 mg PO TID PRN #10 tablet 05/24/17 Benzonatate [Tessalon Perle] 100 mg PO Q8 PRN #30 capsule 06/04/17 Fluticasone Propionate [Flonase] 2 spr NS DAILY PRN #1 bottle 06/04/17 Cephalexin [cephalexin] 500 mg PO BID #20 cap 10/06/17 Dicyclomine [Bentyl] 20 mg PO Q12 PRN #20 tab 04/14/18 Ondansetron ODT [Zofran ODT] 4 mg PO Q6 PRN #8 odt 04/14/18 Metoclopramide [Reglan] 10 mg PO TID PRN #10 tab 04/29/18 Naproxen [Naprosyn] 500 mg PO BID PRN #10 tab 04/29/18 Benzonatate [Tessalon Perles] 100 mg PO BID PRN 5 Days sgl 08/21/18 Ibuprofen [Motrin] 600 mg PO TID 7 Days tab 08/21/18 Ciprofloxacin [Cipro] 500 mg PO BID #14 tab 08/26/18 Dicyclomine [Bentyl] 20 mg PO TID PRN #10 tab 08/26/18 metroNIDAZOLE [Flagyl] 500 mg PO BID #14 tab 08/26/18 Doxycycline Hyclate 100 mg PO BID 14 Days cap 08/31/18 metroNIDAZOLE [Flagyl] 500 mg PO BID 14 Days tab 08/31/18 Metoclopramide [Reglan] 10 mg PO TID PRN #10 tab 01/11/19 Naproxen [Anaprox DS] 550 mg PO DAILY PRN #10 tab 01/11/19 - Allergies Allergies/Adverse Reactions: Allergies Allergy/AdvReac Type Severity Reaction Status Date / Time No Known Allergies Allergy Verified 01/11/19 13:25 Review of Systems ROS Statement: Except As Marked, All Systems Reviewed And Found Negative Physical Exam - Reviewed Nursing Documentation Reviewed: Yes Vital Signs Reviewed: Yes - Physical Exam Appears: Positive for: Well, Non-toxic, No Acute Distress Head Exam: Positive for: ATRAUMATIC, NORMAL INSPECTION, NORMOCEPHALIC Skin: Positive for: Normal Color, Warm, DRY Eye Exam: Positive for: EOMI, Normal appearance, PERRL ENT: Positive for: Pharynx Is (MILD ERYTHEMA RIGHT POSTERIOR PHARYNX). Negative for: Normal ENT Inspection Neck: Positive for: Normal, Painless ROM Cardiovascular/Chest: Positive for: Regular Rate, Rhythm Respiratory: Positive for: CNT, Normal Breath Sounds Gastrointestinal/Abdominal: Positive for: Normal Exam, Soft Back: Positive for: Normal Inspection Extremity: Positive for: Normal ROM Neurological/Psych: Positive for: Awake, Alert, Normal Tone - Laboratory Results Result Diagrams: 03/07/19 19:17 Urine POC: Positive Urine dip results: Positive for: Blood (TRACE), Ketones (TRACE). Negative for: Leukocyte Esterase, Nitrate, Glucose, Bilirubin, Protein - ECG ECG Rhythm: Positive for: Sinus Rhythm (NSR 82BPM; NO ECTOPY NO ACUTE CHANGES) O2 Sat by Pulse Oximetry: 99 - Progress ED Course And Treament: BLOOD GLUCOSE 81 NS 1 LITER 500 ML PER HOUR X 1 LITER ZOFRAN 4 MG IV X 1 DOSE Disposition - Clinical Impression Clinical Impression: Syncope, , Gastroenteritis - Patient ED Disposition Is Patient to be Admitted: Transfer of Care - Disposition Disposition: Transfer of Care Disposition Time: 19:57 Condition: FAIR Patient Signed Over To: Freeman Mancilla Handoff Comments: PENDING US REPORT/BLOODWORK RESULTS
[2019-03-07 19:20] LABS: BASO # 0.1 K/uL (0.0-0.2); BASO % 0.6 % (0.0-2.0); EOS # 0.1 K/uL (0.0-0.7); EOS % 1.4 % (0.0-4.0); HEMOGLOBIN 13.2 g/dL (12.0-16.0); LYMPH # 1.3 K/uL (1.0-4.3); LYMPH % 12.4 % (20.0-40.0); MEAN CELL VOLUME 84.3 fl (81.0-99.0); MEAN CORPUSCULAR HEMOGLOBIN 27.5 pg (27.0-31.0); MEAN CORPUSCULAR HGB CONC 32.7 g/dL (33.0-37.0); MEAN PLATELET VOLUME 7.6 fl (7.2-11.7); MONO # 0.4 K/uL (0.0-0.8); MONO % 3.9 % (0.0-10.0); NEUT # 8.5 K/uL (1.8-7.0); NEUT % 81.7 % (50.0-75.0); RBC 4.8 Mil/uL (3.80-5.20); RED CELL DISTRIBUTION WIDTH 15.3 % (11.5-14.5); WHITE BLOOD COUNT 10.4 K/uL (4.8-10.8)
[2019-03-07 19:48] LABS: SQUAMOUS EPITHIAL 10 /hpf (0-5); URINE BACTERIA OCC (<OCC); URINE BILIRUBIN NEGATIVE (NEGATIVE); URINE BLOOD SMALL (NEGATIVE); URINE GLUCOSE (UA) 50 mg/dL (NEGATIVE); URINE LEUKOCYTE ESTERASE TRACE Leu/uL (Negative); URINE PROTEIN NEGATIVE (NEGATIVE); URINE UROBILINOGEN 0.2-1.0 mg/dL (0.2-1.0)
[2019-03-07 19:58] LABS: URINE CLARITY CLOUDY (Clear); URINE COLOR YELLOW (YELLOW)
[2019-03-07 20:02] LABS: ALB/GLOB RATIO 1.2 (1.0-2.1); ALBUMIN 4.6 g/dL (3.5-5.0); ALT/SGPT 36 U/L (9-52); AST/SGOT 38 U/L (14-36); BLOOD UREA NITROGEN 10 mg/dl (7-17); CALCIUM 10.3 mg/dL (8.4-10.2); GFR NON-AFRICAN AMERICAN > 60; LIPASE 44 U/L (23-300)
--- NOTE | 2019-03-07 20:24 | ED PDOC ---
- Laboratory Results Result Diagrams: 03/07/19 19:17 03/07/19 19:17 Lab Results: Total Bilirubin 0.5 mg/dl (0.2-1.3) 03/07/19 19:17 AST 38 U/L (14-36) H 03/07/19 19:17 ALT 36 U/L (9-52) 03/07/19 19:17 Alkaline Phosphatase 116 U/L (38-126) 03/07/19 19: Total Protein 8.4 G/DL (6.3-8.2) H 03/07/19 19: Albumin 4.6 g/dL (3.5-5.0) 03/07/19 19: Globulin 3.8 gm/dL (2.2-3.9) 03/07/19 19: Albumin/Globulin Ratio 1.2 (1.0-2.1) 03/07/19 19: Lipase 44 U/L (23-300) 03/07/19 19:17 Urine Color Yellow (YELLOW) 03/07/19 19:02 Urine Clarity Cloudy (Clear) 03/07/19 19:02 Urine pH 5.0 (5.0-8.0) 03/07/19 19:02 Ur Specific [place] 1.010 (1.003-1.030) 03/07/19 19:02 Urine Protein Negative mg/dL (NEGATIVE) 03/07/19 19:02 Urine Glucose (UA) 50 mg/dL (NEGATIVE) 03/07/19 19:02 Urine Ketones Negative mg/dL (NEGATIVE) 03/07/19 19:02 Urine Blood Small (NEGATIVE) 03/07/19 19:02 Urine Nitrate Negative (NEGATIVE) 03/07/19 19:02 Urine Bilirubin Negative (NEGATIVE) 03/07/19 19:02 Urine Urobilinogen 0.2-1.0 mg/dL (0.2-1.0) 03/07/19 19:02 Ur Leukocyte Esterase Trace [place]/uL (Negative) 03/07/19 19:02 Urine RBC (Auto) 7 /hpf (0-3) H 03/07/19 19:02 Urine Microscopic WBC 31 /hpf (0-5) H 03/07/19 19:02 Ur Squamous Epith Cells 10 /hpf (0-5) H 03/07/19 19:02 Urine Bacteria Occ (<OCC) H 03/07/19 19:02 Urine POC: Positive - ECG O2 Sat by Pulse Oximetry: 99 Medical Decision Making Medical Decision Making: Time: 1999 -- Patient endorsed to me by Dino Enriquez PA-C pending US results, blood work and final ER disposition. Time: 2000 EXAM: US Pelvis, Complete Transvaginal and Transabdominal COMPARISON: None provided. CLINICAL HISTORY: R/o ectopic TECHNIQUE: Transvaginal and transabdominal pelvic ultrasound (complete) with image documentation. FINDINGS: ENDOMETRIUM: There is a single live intrauterine gestation. cardiac activity is identified and is 114 bpm. Gestational sac diameter is 1.3 cm corresponding to 5 weeks 4 days. pole is 0.4 cm corresponding to 6 weeks and 1 day. Yolk sac is identified. UTERUS/CERVIX: The uterus appears within normal limits. No uterine fibroid or other mass evident. RIGHT OVARY: Right corpus luteum cyst is suspected and measures 1.9 x 1.8 x 2 cm. A small cystic structure measuring 1.1 x 1.2 x 1.2 cm right adnexal region. LEFT OVARY: Normal Doppler flow. No abnormal mass. FREE FLUID: No free fluid. IMPRESSION: Single live intrauterine gestation of approximately 6 weeks and 1 day. Right corpus luteum cyst suspected as well as small adjacent cystic structure. Correlation with beta-hCG levels and follow-up study recommended. Electronically signed on Mar 07, 2019 8:01:33 PM EDT by: Chay Pascal M.D., Certified by [employer], Diagnostic Radiology 2014 pt reports she needs to leave as she got a call from daycare saying no one picked up her kids Pt is A0, did not know she was till today, presented with syncope episode at work, notes she had N/V/D yesterday, better today, tolerating PO, had vaginal spotting last week, LMP 3/8 labs wnl, pending hcg, US shows single IUP, with right cystic structure, recommends repeat hcg and study, UA shows UTI will treat with keflex Informed pt of results and need for repeat hcg in 2 days either at clinic or here Pt is feeling better, normal steady gait, abdomen is soft and non tender, stable for dc Discussed results, diagnosis, treatment, return precautions and f/u with pt who is understanding, in agreement and stable for dc hcg reviewed by me, high level, will need comparison in 48 hours Scribe Attestation: Documented by Flavio Chavis, acting as a scribe Caprice Van PA-C. Provider Scribe Attestation: All medical record entries made by the Scribe were at my direction and personally dictated by me. I have reviewed the chart and agree that the record accurately reflects my personal performance of the history, physical exam, medical decision making, and the department course for this patient. I have also personally directed, reviewed, and agree with the discharge instructions and disposition. Disposition Counseled Patient/Family Regarding: Studies Performed, Diagnosis, Need For Followup, Rx Given - Clinical Impression Clinical Impression: Syncope, , Gastroenteritis, UTI (urinary tract infection) in in first trimester - POA Present On Arrival: None - Disposition Referrals: [facility] [Outside] Disposition: Routine/Home Disposition Time: 20:21 Condition: IMPROVED Additional Instructions: Follow up with women's health clinic or come back to the ED in 2 days for repeat hcg level. Take antibiotics as prescribed until finishes. Return to ED sooner for new or worsening symptoms. Prescriptions: Cephalexin [Keflex] 500 mg PO TID 7 Days #21 capsule Instructions: Urinary Tract Infections in Adults, Syncope (Fainting) Forms: [employer] (Malagasy), [facility] ED School/Work Excuse Print Language: SRI LANKAN
[2019-03-07 21:25] VITALS: BP 116/74; PULSE 81; RESP 16; TEMP 98
[2019-03-07 22:08] VITALS: O2SAT 99
--- NOTE | 2019-03-08 08:50 | US ---
Date of service: 03/07/2019 PROCEDURE: OB Pelvic Ultrasound HISTORY: R/O ECTOPIC LMP: 02/01/2019 COMPARISON: No relevant prior imaging. FINDINGS: UTERUS: Gestational sac: Single intrauterine gestation. Mean sac diameter measures 1.3 cm compatible with estimated gestational age of 5 weeks, 4 days Yolk sac: Present, measures 0.2 cm pole: Bland-rump length measures 0.4 cm compatible with estimated gestational age of 6 weeks, 1 day Heart rate: 114 bpm. age (Ultrasound estimated): 5 weeks, 6 days Amy-gestational hemorrhage: None. Date of delivery (Ultrasound estimated) : 11/01/2019 Uterus measures 7.5 x 5.1 x 4.1 cm. Normal in size and appearance. CERVIX: Measures 3.3 cm. Long and closed. No cervical abnormality seen. RIGHT OVARY: Measures 2.3 x 2.2 x 2.0 cm. Corpus luteum measuring 1.9 x 1.8 x 2.0 cm. Exophytic ovarian versus adnexal cyst measuring 1.1 x 1.2 x 1.2 cm. Normal flow. LEFT OVARY: Measures 2.6 x 2.9 x 1.9 cm. No solid mass. Normal flow. FREE FLUID: None. OTHER FINDINGS: None. IMPRESSION: Single live intrauterine gestation with average ultrasound age of 5 weeks, 6 days. heart rate 114 beats per minute. Cervix long and closed.
--- NOTE | 2019-03-08 20:38 | CARD ---
APPROVED REPORT Date of service: 03/07/2019 EKG Measurement Heart [id number] <Conclusion> Normal sinus rhythm Normal ECG
== END 2019-03-07 20:24 | disposition home or self-care (01) ==
LOC: H.ER 16:25
DX: O23.41 Unspecified infection of urinary tract in pregnancy, first trimester (principal); O26.91 Pregnancy related conditions, unspecified, first trimester; F17.200 Nicotine dependence, unspecified, uncomplicated; K52.9 Noninfective gastroenteritis and colitis, unspecified; O99.331 Smoking (tobacco) complicating pregnancy, first trimester; R55 Syncope and collapse
CPT/HCPCS: 76817; 80053; 81003; 82948; 83690; 84702; 85025; 87086; 93005; 96361; 96374; 99284; J2405; J7030

== ENCOUNTER 2019-03-18 12:47 | Emergency (ER) | payer OTHER ==
[2019-03-18 12:47] VITALS: BMI 28.3
[2019-03-18] MEDS ORDERED: DiphenhydrAMINE 50 mg/ml Inj IVP STA (13:18)
[2019-03-18] MEDS ORDERED: DiphenhydrAMINE 50 mg/ml Inj ONE (13:48)
--- NOTE | 2019-03-18 13:50 | ED PDOC ---
HPI: Headache Time Seen by Provider: 03/18/19 13:03 Chief Complaint (Nursing): Headache Chief Complaint (Provider): Migraine Headache History Per: Patient History/Exam Limitations: no limitations Onset/Duration Of Symptoms: Days (x4) Current Symptoms Are (Timing): Still Present Additional Complaint(s): 28 year old female presents to the ED for evaluation of a right sided migraine headache described as pounding associated with photo/phonophobia and nausea ongoing for the past four days with one episode of non-bloody, non-bilious vomiting yesterday night. Patient states she has a history of migraines, and these symptoms feel similar to past episodes. Otherwise, denies visual changes, abdominal pain, chest pain, SOB, fever/chills, neck pain / stiffness, sick cont acts, and recent travel. Of note, patient reports taking Tylenol at 0900 this morning and Ibuprofen 400mg around noon without any relief. LMP 2 weeks ago PMD: none provided Past Medical History Reviewed: Historical Data, Nursing Documentation, Vital Signs Vital Signs: Last Vital Signs Temp 98.5 F 03/18/19 12:50 Pulse 83 03/18/19 12:50 Resp 14 03/18/19 12:50 BP 111/79 03/18/19 12:50 Pulse Ox 99 03/18/19 12:50 - Medical History PMH: Migraine - Surgical History Surgical History: (x2) - Family History Family History: States: Unknown Family Hx - Social History Current smoker - smoking cessation education provided: Yes (light) Alcohol: None Drugs: Denies - Home Medications Home Medications: Ambulatory Orders Medication Instructions Recorded Ibuprofen [Motrin] 600 mg PO TID PRN #30 tab 07/08/16 Naproxen [Naprosyn] 1 tab PO BID PRN #60 tab 08/05/16 Albuterol HFA [Ventolin HFA 90 2 puff IH [id number] PRN #0 puff 09/04/16 mcg/actuation (8 g)] Promethazine DM [Phenergan DM 5 ml PO Q6 PRN #120 ml 09/04/16 Syrup] Naproxen [Naprosyn] 500 mg PO BID PRN #20 tablet 09/24/16 Albuterol HFA [Ventolin HFA 90 2 puff IH Q6 #200 puff 12/21/16 mcg/actuation (8 g)] Dextromethorphan Polistirex 30 mg PO BID #100 ml 12/21/16 [Delsym] Oseltamivir Phosphate [Tamiflu] 75 mg PO BID #10 capsule 12/21/16 Ondansetron ODT [Zofran ODT] 4 mg PO Q6 PRN #10 odt 03/09/17 Multivit/Folic Acid/I 1 tab PO DAILY #30 tab 03/09/17 [ Plus] Ibuprofen [Motrin Tab] 600 mg PO Q8 PRN #30 tab 03/24/17 Penicillin VK [Penicillin VK Tab] 500 mg PO Q6 #40 tab 03/24/17 Nitrofurantoin Macrocrystals 100 mg PO BID #14 cap 05/24/17 [Macrobid] Phenazopyridine HCl [Pyridium] 200 mg PO TID PRN #10 tablet 05/24/17 Benzonatate [Tessalon Perle] 100 mg PO Q8 PRN #30 capsule 06/04/17 Fluticasone Propionate [Flonase] 2 spr NS DAILY PRN #1 bottle 06/04/17 Cephalexin [cephalexin] 500 mg PO BID #20 cap 10/06/17 Dicyclomine [Bentyl] 20 mg PO Q12 PRN #20 tab 04/14/18 Ondansetron ODT [Zofran ODT] 4 mg PO Q6 PRN #8 odt 04/14/18 Metoclopramide [Reglan] 10 mg PO TID PRN #10 tab 04/29/18 Naproxen [Naprosyn] 500 mg PO BID PRN #10 tab 04/29/18 Benzonatate [Tessalon Perles] 100 mg PO BID PRN 5 Days sgl 08/21/18 Ibuprofen [Motrin] 600 mg PO TID 7 Days tab 08/21/18 Ciprofloxacin [Cipro] 500 mg PO BID #14 tab 08/26/18 Dicyclomine [Bentyl] 20 mg PO TID PRN #10 tab 08/26/18 metroNIDAZOLE [Flagyl] 500 mg PO BID #14 tab 08/26/18 Doxycycline Hyclate 100 mg PO BID 14 Days cap 08/31/18 metroNIDAZOLE [Flagyl] 500 mg PO BID 14 Days tab 08/31/18 Metoclopramide [Reglan] 10 mg PO TID PRN #10 tab 01/11/19 Naproxen [Anaprox DS] 550 mg PO DAILY PRN #10 tab 01/11/19 Cephalexin [Keflex] 500 mg PO TID 7 Days #21 capsule 03/07/19 Acetaminophen/Butalbital/Caf 1 tab PO Q6 PRN #12 tab 03/18/19 [Fioricet] Naproxen 500 mg PO BID PRN #20 tab 03/18/19 - Allergies Allergies/Adverse Reactions: Allergies Allergy/AdvReac Type Severity Reaction Status Date / Time No Known Allergies Allergy Verified 01/11/19 13:25 Review of Systems ROS Statement: Except As Marked, All Systems Reviewed And Found Negative Constitutional: Negative for: Fever Eyes: Negative for: Vision Change Cardiovascular: Negative for: Chest Pain Respiratory: Negative for: Shortness of Breath Gastrointestinal: Positive for: Nausea, Vomiting (x1 episode). Negative for: Abdominal Pain Musculoskeletal: Negative for: Neck Pain (or stiffness) Neurological: Positive for: Headache (right sided, pounding associated with photo/phonophobia) Physical Exam - Reviewed Nursing Documentation Reviewed: Yes Vital Signs Reviewed: Yes - Physical Exam Comments: GENERAL APPEARANCE: Patient is awake, alert, oriented x 3, in no acute distress. Resting comfortably, on cell phone. SKIN: Warm, dry; (-) cyanosis; (-) rash. HEAD: (-) scalp swelling or tenderness, (-) temporal artery tenderness. EYES: (-) conjunctival injection (-) scleral icterus. (+) photophobia ENMT: Pharynx: clear, uvula midline (-) erythema (-) exudate. (-) sinus tenderness; mucous membranes are moist. Airway patent, (-) stridor. NECK: Supple, FROM (-) tenderness, (-) stiffness, (-) meningismus, (-) lymphadenopathy. CHEST AND RESPIRATORY: (-) rales, (-) rhonchi, (-) wheezes; breath sounds equal bilaterally. Respirations even and nonlabored, speaking in full sentences. HEART AND CARDIOVASCULAR: (-) irregularity ABDOMEN AND GI: Soft; (-) tenderness (-) guarding (-) distention. EXTREMITIES: (-) deformity. NEURO AND PSYCH: Mental status as above. data warehouse specialist: Pupils equal and reactive; EOMI and painless; (-) facial asymmetry; tongue midline. Strength and sensation symmetric. Gait: steady. Speech: clear. Cerebellar tests intact. - ECG O2 Sat by Pulse Oximetry: 99 (RA) Pulse Ox Interpretation: Normal Medical Decision Making Medical Decision Making: Initial Impression: migraine headache Time: 1320 Initial Plan: --Benadryl 25mg IVP (not driving home) --Reglan 10mg IVP --Toradol 15mg IVP --Reevaluate 1440 On re-evaluation, patient reports improvement of symptoms. On exam, patient remains AAOx3, in no acute distress. Lungs clear to auscultation, cardiac RRR, abdomen soft, non-tender, repeat neuro exam shows no focal findings. Vitals stable. Lab/Diagnostic results d/w the patient in great detail. Diagnosis of migraine headache d/w the patient. Based on history, exam and diagnostic results, plan will be for outpatient follow up with clinic/neuro. Patient instructed to follow-up with pmd / referral provided / the clinic in 1- 2 days without fail. Advised to take medication as prescribed. Return to the emergency room at any time for any new or worsening symptoms. Patient states she fully agrees with and understands discharge instructions. States that she agrees with the plan and disposition. Verbalized and repeated discharge instructions and plan. I have given the patient opportunity to ask any additional questions. Scribe Attestation: Documented by Santa Merrill, acting as a scribe for Marta Ferro PA-C. Provider Scribe Attestation: All medical record entries made by the Scribe were at my direction and personally dictated by me. I have reviewed the chart and agree that the record accurately reflects my personal performance of the history, physical exam, medical decision making, and the department course for this patient. I have also personally directed, reviewed, and agree with the discharge instructions and disposition. Disposition - Clinical Impression Clinical Impression: Migraine headache - Patient ED Disposition Is Patient to be Admitted: No Counseled Patient/Family Regarding: Studies Performed, Diagnosis, Need For Followup, Rx Given - Disposition Referrals: [facility] [Outside] Tali Zuñiga MD [Medical Doctor] - Disposition: Routine/Home Disposition Time: 14:40 Condition: STABLE Additional Instructions: The emergency medical care you received today was directed at your acute symptom s. If you were prescribed any medication, please fill it and take as directed. It may take several days for your symptoms to resolve. Return to the Emergency Department if your symptoms worsen, do not improve, or if you have any other problems. Please contact your doctor in 2 days for re-evaluation and follow up / or call one of the physicians/clinics you have been referred to that are listed on the Patient Visit Information form that is included in your discharge packet. Bring any paperwork you were given at discharge with you along with any medications you are taking to your follow up visit. Our treatment cannot replace ongoing medical care by a primary care provider (PCP) outside of the emergency department. Prescriptions: Acetaminophen/Butalbital/Caf [Fioricet] 1 tab PO Q6 PRN #12 tab PRN Reason: Migraine Headache Naproxen 500 mg PO BID PRN #20 tab PRN Reason: Migraine Headache Instructions: Migraine Headache (DC) Forms: [facility] ([employer]), [facility] ED School/Work Excuse Print Language: NICARAGUAN - POA Present On Arrival: None
[2019-03-18 14:57] VITALS: BP 114/82; PULSE 82; RESP 16; TEMP 98.2
[2019-03-18 15:44] VITALS: O2SAT 99
== END 2019-03-18 14:55 | disposition home or self-care (01) ==
LOC: H.ER 12:47
DX: G43.909 Migraine, unspecified, not intractable, without status migrainosus (principal); F17.200 Nicotine dependence, unspecified, uncomplicated
CPT/HCPCS: 96374; 96375; 99283; J1200; J1885; J2765